=== PATIENT | male | born 1945 | race Caucasian/White ===

== ENCOUNTER 2019-05-24 17:54 | Emergency (ER) | payer MEDICARE, BC ==
[2019-05-24] MEDS ORDERED: Sodium Chloride 0.9% 10 ML Syringe FLUSH PRN (18:07)
[2019-05-24 18:26] LABS: CHLORIDE,CL 98 mmol/L (98-107); SODIUM,NA 130 mmol/L (136-145)
[2019-05-24 18:27] LABS: PTT,PARTIAL THROMBOPLSTIN TIME 26.6 SEC (24.5-32.8)
[2019-05-24] MEDS ORDERED: Sodium Chloride 0.9% 1,000 ML IV ONE (18:28)
[2019-05-24] MEDS ORDERED: Sodium Chloride 0.9% 1,000 ML IV SCH (18:30)
[2019-05-24] MEDS ORDERED: Oseltamivir 30 MG Cap PO ONE (18:52)
[2019-05-24] MEDS ORDERED: Acetaminophen 325 MG Tab PO ONE (19:00)
[2019-05-24] MEDS ORDERED: Oseltamivir 30 MG Cap ONE (19:01)
--- NOTE | 2019-05-24 19:03 | EDM.PDOC ---
ED HPI GENERAL MEDICAL PROBLEM - General Chief Complaint: Neurological Problem Stated Complaint: stroke code Time Seen by Provider: 05/24/19 18:06 Source of Information: Reports: Patient, Family History Limitations: Reports: Altered Mental Status - History of Present Illness INITIAL COMMENTS - FREE TEXT/NARRATIVE: Pt noted by family to be weak and confused Last known well time was about noon Pt found outside by family weak and unable to walk Very confused Upon arrival in ER pt confused and weak Pt with generalized weakness, cannot remember birthday or events Unsure of situation Pt does follow commands No focal neuro changes states he has not taken his meds for 3 days and has had decreased oral intake No new meds No trauma No travel hx ED ROS GENERAL - Review of Systems Review Of Systems: See Below Constitutional: Reports: Fever, Weakness HEENT: Reports: No Symptoms Respiratory: Reports: No Symptoms Cardiovascular: Reports: No Symptoms GI/Abdominal: Reports: No Symptoms Musculoskeletal: Reports: No Symptoms Neurological: Reports: Confusion, Difficulty Walking, Weakness - Physical Exam Exam: See Below Exam Limited By: Altered Mental Status Eye Exam: Bilateral Eye: EOMI, PERRL Ears: Normal TMs Nose: Normal Inspection Throat/Mouth: Normal Inspection, Normal Oropharynx Head Exam: Atraumatic Neck: Supple Respiratory/Chest: Decreased Breath Sounds Cardiovascular: Regular Rate, Rhythm GI/Abdominal: Non-Tender Neuro Exam (Abbreviated): No Motor/Sensory Deficits, Confused Extremities: No Pedal Edema Skin Exam: No Rash Course - Orders/Labs/Meds Orders: Active Orders 24 hr Category Date Time Status Assess Neurological Status [RC] CONTINUOUS Care 05/24/19 18:07 Active Blood Glucose Check, Bedside [RC] STAT Care 05/24/19 18:07 Active Cardiac Monitoring [RC] CONTINUOUS Care 05/24/19 18:07 Active Communication Order [RC] STAT Care 05/24/19 18:07 Active EKG Documentation Completion [RC] ASDIRECTED Care 05/24/19 18:08 Active Height and Weight [RC] UPON Care 05/24/19 18:07 Active NIH Stroke Scale [RC] Q15M Care 05/24/19 18:07 Active NIH Stroke Scale [RC] STAT Care 05/24/19 18:07 Active Nursing Bedside Swallow Screen [RC] STAT Care 05/24/19 18:07 Active Oxygen Therapy, ED [RC] ASDIRECTED Care 05/24/19 18:07 Active Peripheral IV Care [RC] . DIRECTED Care 05/24/19 18:08 Active Vital Signs [RC] Q15M Care 05/24/19 18:07 Active Chest 1V Frontal [CR] Stat Exams 05/24/19 18:25 Taken Head wo Cont [CT] Stat Exams 05/24/19 18:07 Taken LACTIC ACID [CHEM] Stat Lab 05/24/19 18:45 Ordered Sodium Chloride 0.9% [Normal Saline] 1,000 ml Med 05/24/19 18:30 Active IV ASDIRECTED Sodium Chloride 0.9% [Saline Flush] Med 05/24/19 18:07 Active 10 ml FLUSH ASDIRECTED PRN Peripheral IV Insertion Adult [OM.PC] Stat Oth 05/24/19 18:07 Ordered Peripheral IV Insertion Adult [OM.PC] Stat Oth 05/24/19 18:07 Ordered Resuscitation Status Stat Resus Stat 05/24/19 18:07 Ordered Medication Orders Sodium Chloride (Normal Saline) 1,000 mls @ 200 mls/hr IV ASDIRECTED CONRADO Sodium Chloride (Saline Flush) 10 ml FLUSH ASDIRECTED PRN PRN Reason: Keep Vein Open Labs: Laboratory Tests 05/24/19 05/24/19 05/24/19 Range/Units 18:00 18:00 18:00 WBC 12.6 H (4.0-10.2) K/uL RBC 4.56 (4.33-5.41) M/uL Hgb 14.5 (13.1-16.8) g/dL Hct 42.2 (39.0-49.0) % MCV 92.5 (84.0-98.0) fL MCH 31.8 (28.2-33.3) pg MCHC 34.4 (31.7-36.0) g/dL RDW 13.3 (11.2-14.1) % Plt Count 321 (150-350) K/uL Neut % (Auto) 69.0 (45.0-80.0) % Lymph % (Auto) 17.0 (10.0-50.0) % Harper % (Auto) 11.5 (2.0-14.0) % Eos % (Auto) 2.3 (0.0-5.0) % Baso % (Auto) 0.2 (0.0-2.0) % Neut # (Auto) 8.67 H (1.40-7.00) K/uL Lymph # (Auto) 2.14 (0.50-3.50) K/uL Harper # (Auto) 1.44 H (0.00-1.00) K/uL Eos # (Auto) 0.29 (0.00-0.50) K/uL Baso # (Auto) 0.03 (0.00-0.20) K/uL PT 10.1 (9.5-12.0) SEC INR 1.0 APTT 26.6 (24.5-32.8) SEC Sodium 130 L (136-145) mmol/L Potassium 4.7 (3.5-5.1) mmol/L Chloride 98 (98-107) mmol/L Carbon Dioxide 18.5 L (21.0-32.0) mmol/L BUN 45 H (7-18) mg/dL Creatinine 2.73 H (0.51-1.17) mg/dL Est Cr Clr Drug Dosing TNP Estimated GFR (MDRD) 23 mL/min Glucose 109 H (74-106) mg/dL Calcium 9.1 (8.5-10.1) mg/dL Total Bilirubin 0.4 (0.2-1.0) mg/dL AST 46 H (15-37) U/L ALT 45 (12-78) U/L Alkaline Phosphatase 158 H (46-116) IU/L Troponin I 0.014 (0.000-0.056) ng/mL Total Protein 8.0 (6.4-8.2) g/dL Albumin 2.9 L (3.4-5.0) g/dL Meds: Medications Generic Name Dose Route Start Last Admin Trade Name Freq PRN Reason Stop Dose Admin Sodium Chloride 1,000 mls @ 200 mls/hr 05/24/19 18:30 Normal Saline IV ASDIRECTED CONRADO Sodium Chloride 10 ml 05/24/19 18:07 Saline Flush FLUSH ASDIRECTED PRN Keep Vein Open Discontinued Medications Generic Name Dose Route Start Last Admin Trade Name Freq PRN Reason Stop Dose Admin Oseltamivir Phosphate 30 mg 05/24/19 18:52 Tamiflu PO 05/24/19 18:53 ONETIME ONE - Re-Assessments/Exams Free Text/Narrative Re-Assessment/Exam: 05/24/19 19:[address] per radiologist negative See lab Unknown if elevated BUN/Cr is acute INfluenza B positive D/W Dr [facility] Will accept in transfer Pt with NS IVF Pt able to swallow Tamiflu and Tylenol Tamiflu dosed for renal status Departure - Departure Time of Disposition: 19:15 Disposition: DC/Tfer to Acute Hospital 02 Clinical Impression: Confusion and disorientation, Influenza B - Discharge Information *PRESCRIPTION DRUG MONITORING PROGRAM REVIEWED*: Not Applicable *COPY OF PRESCRIPTION DRUG MONITORING REPORT IN PATIENT NUVIA: Not Applicable Referrals: PCP,None [Primary Care Provider] - - My Orders Last 24 Hours: My Active Orders 05/24/19 18:07 Assess Neurological Status [RC] CONTINUOUS Blood Glucose Check, Bedside [RC] STAT Cardiac Monitoring [RC] CONTINUOUS Communication Order [RC] STAT Height and Weight [RC] UPON NIH Stroke Scale [RC] Q15M NIH Stroke Scale [RC] STAT Nursing Bedside Swallow Screen [RC] STAT Oxygen Therapy, ED [RC] ASDIRECTED Vital Signs [RC] Q15M Head wo Cont [CT] Stat Sodium Chloride 0.9% [Saline Flush] 10 ml FLUSH ASDIRECTED PRN Peripheral IV Insertion Adult [OM.PC] Stat Peripheral IV Insertion Adult [OM.PC] Stat Resuscitation Status Stat 05/24/19 18:08 EKG Documentation Completion [RC] ASDIRECTED Peripheral IV Care [RC] . DIRECTED 05/24/19 18:25 Chest 1V Frontal [CR] Stat 05/24/19 18:30 Sodium Chloride 0.9% [Normal Saline] 1,000 ml IV ASDIRECTED 05/24/19 18:45 LACTIC ACID [CHEM] Stat - Assessment/Plan Last 24 Hours: My Active Orders 05/24/19 18:07 Assess Neurological Status [RC] CONTINUOUS Blood Glucose Check, Bedside [RC] STAT Cardiac Monitoring [RC] CONTINUOUS Communication Order [RC] STAT Height and Weight [RC] UPON NIH Stroke Scale [RC] Q15M NIH Stroke Scale [RC] STAT Nursing Bedside Swallow Screen [RC] STAT Oxygen Therapy, ED [RC] ASDIRECTED Vital Signs [RC] Q15M Head wo Cont [CT] Stat Sodium Chloride 0.9% [Saline Flush] 10 ml FLUSH ASDIRECTED PRN Peripheral IV Insertion Adult [OM.PC] Stat Peripheral IV Insertion Adult [OM.PC] Stat Resuscitation Status Stat 05/24/19 18:08 EKG Documentation Completion [RC] ASDIRECTED Peripheral IV Care [RC] . DIRECTED 05/24/19 18:25 Chest 1V Frontal [CR] Stat 05/24/19 18:30 Sodium Chloride 0.9% [Normal Saline] 1,000 ml IV ASDIRECTED 05/24/19 18:45 LACTIC ACID [CHEM] Stat
== END 2019-05-24 19:20 ==
LOC: LL.ED 17:54
DX: R41.0 Disorientation, unspecified (principal); J10.1 Influenza due to other identified influenza virus with other respiratory manifestations
CPT/HCPCS: 36415; 70450; 71045; 80053; 83605; 84484; 85025; 85610; 85730; 87804; 93005; 99284; 99285; A9270; J7030

== ENCOUNTER 2019-05-29 08:22 | Inpatient (IN) | payer MEDICARE, BC ==
--- NOTE | 2019-05-29 08:33 | EDM.PDOC ---
ED HPI GENERAL MEDICAL PROBLEM - General Chief Complaint: General Stated Complaint: fall, weakness Time Seen by Provider: 05/29/19 08:22 Source of Information: Reports: Patient, EMS, Family (), Old Records ([facility] chart/EMR), Other ([facility] EMR). 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 Last known well time prior to bedtime yesterday evening at 22: 30 hours. His heard some noises, and the patient apparently fell out of bed landing against their bedroom door with some confusion at that time. No known history of seizure activity, urine/stool incontinence, etc. Note that the patient is a poor historian secondary to his current mental status and confusion. No apparent alcohol use since 05/18/19. The patient was recently hospitalized at [facility] in [place] from 05/24/19 until 05/27/19 for influenza B with patient currently on Tamiflu. He was not discharged on any antibiotic, although he was sent home on Librium secondary to apparent DTs during the above hospitalization. The patient denies any chest pain/pressure, heart flutter, dizziness, orthostasis, orthopnea, diaphoresis, paresthesias, recent decreased exercise tolerance, or any other anginal-type symptoms. No recent history of abdominal pain, heartburn, nausea, diarrhea, melena, gross hematochezia, or any food intolerance, including fatty foods, etc.. He denies any gross hematuria, colic, or other UTI symptoms. The patient also denies any recent fever, cough, wheezing, dyspnea, etc.. No history of recent headaches, visual changes, diplopia, change in mental status, or other change in neurological status. Onset: Today, Unknown/Unsure Onset Date: 05/29/19 Onset Time: 07:00 Duration: Constant Location: Reports: Other (No pain) Improves with: Reports: None Worsens with: Reports: None Context: Reports: Other (As above) Associated Symptoms: Reports: Confusion. Denies: Chest Pain, Cough, Diaphoresis , Fever/Chills, Headaches, Loss of Appetite, Malaise, Nausea/Vomiting, Shortness of Breath, Syncope, Weakness Treatments TECHNOLOGY LEAD: Reports: Other (see below) (None. He has not taken his morning medications) - Related Data Allergies Allergy/AdvReac Type Severity Reaction Status Date / Time No Known Allergies Allergy Verified 05/29/19 08:32 Home Meds: Home Meds Cyanocobalamin (Vitamin B-12) [Vitamin B-12] 1,000 mcg PO DAILY 05/29/19 [ History] Folic Acid 1 mg PO DAILY 05/29/19 [History] Oseltamivir [Tamiflu] 30 mg PO BID 05/29/19 [History] Polyvinyl Alcohol [Artificial Tears] 1 - 2 drop EYEBOTH ASDIRECTED PRN 05/29/19 [History] Thiamine HCl [Vitamin B-1] 100 mg PO DAILY 05/29/19 [History] Venlafaxine HCl [Venlafaxine ER] 75 mg PO DAILY 05/29/19 [History] allopurinoL [Zyloprim] 100 mg PO DAILY 05/29/19 [History] atorvaSTATin [Lipitor] 10 mg PO DAILY 05/29/19 [History] carvediloL [Carvedilol] 25 mg PO BID 05/29/19 [History] chlordiazePOXIDE [Librium] 10 mg PO TID 05/29/19 [History] predniSONE [Prednisone] 5 mg PO DAILY 05/29/19 [History] Past Medical History HEENT History: Reports: Allergic Rhinitis, Hard of Hearing, Impaired Vision, Macular Degeneration, Other (See Below). Denies: Cataract, Glaucoma, Otitis Media, Retinal Detachment Other HEENT History: Bilateral presbycusis. Patient does wear glasses. 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 Cardiovascular History: Reports: Arrhythmia, High Cholesterol, Hypertension, Other (See Below). Denies: Afib, Aneurysm, Blood Clots/VTE/DVT, CAD, Heart Failure, Heart Murmur, OR, PVD, Syncope Other Cardiovascular History: Grade 1 diastolic dysfunction. First degree AV block. Respiratory History: Reports: Bronchitis, Recurrent, COPD, Intubation, Previous , Other (See Below). Denies: Asthma, Intubation, Difficult, PE, Pneumothorax, Sleep Apnea, TB Other Respiratory History: COPD by chest x-ray with no current medical therapy. 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 Gastrointestinal History: Reports: Diverticulosis, Hepatitis, Other (See Below) . 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 Genitourinary History: Reports: BPH, Chronic Renal Insuffiency, Other (See Below ). Denies: Acute Renal Failure, Renal Calculus, STD, Urinary Incontinence, UTI , Recurrent Other Genitourinary History: Stable right renal complex cyst and bilateral renal cysts by evaluations as below. 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 Stage IV chronic renal insufficiency. Musculoskeletal History: Reports: Arthritis, Back Pain, Chronic, Fracture, Gout , Neck Pain, Chronic, Osteoarthritis, Other (See Below). Denies: Amputation, Osteoporosis, RA, SLE Other Musculoskeletal History: Right coracoid process hairline fracture extending to the scapula on 05/13/18. Neurological History: Reports: Other (See Below). Denies: Cerebral Aneurysms, Concussion, CVA, Headaches, Chronic, Head Trauma, Migraines, MS, Neuropathy, Diabetic, Neuropathy, Peripheral, Parkinson's, Seizure, TIA, Vertigo Other Neuro History: No history of alcohol-induced seizures. Cerebral microvascular disease and cerebral atrophy by CT scan. Psychiatric History: Reports: Addiction, Anxiety, Depression, Psychosis, Other ( See Below). Denies: Abuse, Victim of, ADD, ADHD, Psych Hospitalization(s), PTSD , Suicide Attempt, Suicidal Ideation Other Psychiatric History: History of alcohol abuse with secondary DTs. Endocrine/Metabolic History: Reports: Obesity/BMI 30+. Denies: Diabetes, Type I , Diabetes, Type II, Hypothyroidism, IDDM Hematologic History: Reports: B12 Deficiency. Denies: Anemia, Iron Deficiency Immunologic History: Reports: None. Denies: AIDS, HIV, SLE Oncologic (Cancer) History: Reports: None. Denies: Basal Cell Carcinoma, Colon , Hodgkin's Lymphoma, Leukemia, Lymphoma, Malignant Melanoma, Non-Hodgkin's Lymphoma, Prostate, Squamous Cell Carcinoma Dermatologic History: Reports: Eczema. Denies: Psoriasis - Infectious Disease History Infectious Disease History: Reports: Chicken Pox, Other (See Below). Denies: C- Difficile, Meningitis, Mononucleosis, MRSA, TB Other Infectious Disease History: uncertain of childhood diseases. Sepsis of unknown source. - Past Surgical History Head Surgeries/Procedures: Reports: None HEENT Surgical History: Reports: Oral Surgery, Other (See Below). Denies: Adenoidectomy, Detached Retina, Eye Surgery, Laser Surgery, LASIK, Myringotomy w Tube(s), Naso-Sinus Surgery, Tonsillectomy Other HEENT Surgeries/Procedures: Multiple teeth extractions with complete upper dentures. Cardiovascular Surgical History: Reports: None. Denies: Varicose Respiratory Surgical History: Reports: None. Denies: Thoracentesis GI Surgical History: Reports: None. Denies: Appendectomy, Cholecystectomy, Colonoscopy, EGD, Hernia, Abdominal, Hernia, Inguinal, Hernia Repair/Other Male Surgical History: Reports: Circumcision, Other (See Below). Denies: TURP-Transurethral Resection of Prostate, Vasectomy Other Male Surgeries/Procedures: Circumcision at age 1. Endocrine Surgical History: Reports: None. Denies: Thyroid Biopsy Neurological Surgical History: Reports: None. Denies: C-Spine, Discectomy, Laminectomy, Lumbar Spine, Spinal Fusion, Thoracic Spine, Vertebroplasty Musculoskeletal Surgical History: Reports: Joint Replacement, Shoulder Surgery, Other (See Below). Denies: Arthroscopic Procedure, Carpal Tunnel, Ganglion Cyst Other Musculoskeletal Surgeries/Procedures:: Right shoulder reverse total arthroplasty on 05/13/18. Right total knee arthroplasty on 07/23/15. A left total knee arthroplasty on 08/15/17. Oncologic Surgical History: Reports: None Dermatological Surgical History: Reports: None - Past Imaging History Past Imaging History: Reports: Cardiac Echo (Echocardiogram on 12/01/17 with ejection fraction of 6065 percent otherwise with findings as above.), CAT Scan (CT of the head on 05/24/19 and 03/04/10. CT of the right shoulder on 07/24/18. CT of the abdomen and pelvis on 10/29/08 and 04/15/08.), MRI (Stephanie of the right foot on 12/03/17.) - History Comment History Comment: History from medical records and patient's Social & Family History - Family History HEENT: Reports: None. Denies: Glaucoma, Macular Degeneration, Retinal Detachment Cardiac: Reports: None. Denies: Afib, Aneurysm, Arrhythmia, Blood Clots/VTE/DVT , CAD, Heart Failure, High Cholesterol, Hypertension, OR, Pacemaker, Syncope Respiratory: Reports: None. Denies: Asthma, COPD, PE, Pneumothorax, Sleep Apnea GI: Reports: Colon Polyps, Other (See Below). Denies: Celiac Disease, Cholelithiasis, GERD, GI bleed, Inflammatory Bowel Disease, Irritable Bowel Syndrome, PUD Other GI Family History: Mother with history of colonic polyps in her 60s. : Denies: Renal Calculus, Renal Disease/Insufficiency OBGYN: Reports: None. Denies: Endometriosis, Recurrent Spontaneous Musculoskeletal: Reports: None. Denies: Arthritis, Gout, RA, SLE Neurological: Reports: Alzheimers Disease, CVA, Dementia, Other (See Below). Denies: Cerebral Aneurysms, Migraines, MS, Parkinson's, Seizure, TIA Other Neurological Family History: Mother with organic brain syndrome. Sister with CVA at about age 70. Psychiatric: Reports: Anxiety, Depression, Other (See Below). Denies: Abuse, Victim of, ADD, ADHD, Psych Hospitalization(s), PTSD, Suicide Attempt Other Psychiatric Family History: Mother with anxiety depression disorder. Endocrine/Metabolic: Reports: None. Denies: Diabetes, Type I, Diabetes, type II , Hypothyroidism, IDDM Hematologic: Reports: None. Denies: Anemia, SLE Immunologic: Reports: None. Denies: AIDS, HIV, SLE Dermatologic: Reports: Eczema, Other (See Below). Denies: Psoriasis Other Dermatologic Family History: Sister with eczema. Oncologic: Reports: Hodgkin's Lymphoma, Other (See Below). Denies: Colon, Leukemia, Non-Hodgkin's Lymphoma, Prostate, Skin Other Oncologic Family History: Father with fatal Hodgkin's disease at age 43. - Tobacco Use Smoking Status *Q: Former Smoker Tobacco Use Within Last Twelve Months: Cigarettes Years of Tobacco use: 7 Packs/Tins Daily: 1 Packs/Tins Daily Comment: Patient smoked between ages 17 and 24. Used Tobacco, but Quit: Yes Smoking Cessation Information Provided To Patient: No Second Hand Smoke Education Provided: No - Caffeine Use Caffeine Use: Reports: Coffee (1 Cup per month). Denies: Energy Drinks, Soda, Tea - Alcohol Use Alcohol Use History: Yes Days Per Week of Alcohol Use: 7 Number of Drinks Per Day: 5 Number of Drinks Per Day Comment: Alcohol abuse including 1 L per week of hard liquor and previous beer use since about age 10 with last use on 05/18/19. 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 ( Other than as above) ED EXAM, GENERAL - Physical Exam Exam: See Below Exam Limited By: Altered Mental Status General Appearance: Lethargic, Mild Distress Eye Exam: Bilateral Eye: EOMI, Normal Fundi, Normal Inspection (No nystagmus, glasses not present), PERRL Ears: Normal External Exam, Normal Canal, Normal TMs, Hearing Loss (Mild bilateral presbycusis by history) Nose: Normal Inspection, Normal Mucosa. No: No Blood (Mild left sided epistaxis ), Nasal Tenderness, Nasal Deformity Throat/Mouth: Normal Lips, Normal Oropharynx, Normal Voice, No Airway Compromise. No: Normal Teeth (Complete upper dentures), Dysphagia, Inflammation , Perioral Cyanosis Head: Atraumatic, Normocephalic. No: Facial Swelling, Facial Tenderness, Sinus Tenderness Neck: Supple, Non-Tender, Full Range of Motion, Carotid Bruit (Mild bilateral carotid bruits). No: Lymphadenopathy (L), Lymphadenopathy (R), Thyromegaly Respiratory/Chest: No Respiratory Distress, Chest Non-Tender, Rales (Mild to moderate bilateral basilar rales), Other (Borderline Kussmaul breathing). No: Rhonchi, Wheezing, Pleural Rub, Retractions Cardiovascular: Normal Peripheral Pulses, Regular Rate, Rhythm, No Edema, No Gallop, No JVD, No Murmur, No Rub. No: Gallop/S3, Gallop/S4, Friction Rub Peripheral Pulses: 2+: Radial (L), Radial (R), Dorsalis Pedis (L), Dorsalis Pedis (R) GI/Abdominal: Normal Bowel Sounds, Soft, Non-Tender, No Organomegaly, No Distention, No Abnormal Bruit, No Mass, Pelvis Stable, Hernia (3 cm nonincarcerated umbilical hernia), Other. No: Guarding (Male) Exam: Deferred Rectal (Males) Exam: Deferred Back Exam: Normal Inspection, Full Range of Motion. No: CVA Tenderness (L), CVA Tenderness (R), Muscle Spasm, Paraspinal Tenderness, Vertebral Tenderness Extremities: Normal Inspection, Normal Range of Motion, Non-Tender, No Pedal Edema, Normal Capillary Refill. No: Calvin's Sign Neurological: Confused, Other (Lethargic, leaning to the right side. Negative Babinski's. Unable to perform complete neurological evaluation. Mild to moderate resting tremor with moderate rigidity and cogwheeling) Psychiatric: Normal Affect, Normal Mood Skin Exam: Ecchymosis (Multiple ecchymoses on the arms bilaterally. 34 centimeters small subcutaneous hematoma lateral right thigh.), Wound/Incision ( Skin tears on the dorsal and ventral surfaces of the right wrist with additional skin tear over the left triceps region) Lymphatic: No Adenopathy EKG INTERPRETATION EKG Date: 05/29/19 Time: 08:02 Rhythm: NSR Rate (Beats/Min): 75 Cosby: Normal (Left cardiac axis) P-Wave: Present QRS: Normal (0.08 seconds) ST-T: Normal (Lotion of previous T-wave inversions in leads aVL and possibly V1) QT: Normal AK/PQ Interval: 0.23 seconds representing a stable first-degree AV block Comparison: Change From Previous EKG (As above since 05/24/19) EKG Interpretation Comments: 1. No acute ischemic changes 2. First-degree AV block Course - Vital Signs Last Recorded V/S: Last Vital Signs Temp 37.3 C 05/29/19 08:25 Pulse 70 05/29/19 10:23 Resp 26 H 05/29/19 10:23 BP 120/55 L 05/29/19 10:23 Pulse Ox 95 05/29/19 10:23 Vital Signs - 24 hr 05/29/19 05/29/19 05/29/19 08:25 08:37 08:52 Temperature [ 37.3 C Temporal] Pulse, 86 80 77 Peripheral [ Left Pulse Oximetry] Respiratory 28 H 26 H 26 H Rate Blood Pressure [Left Upper Arm ] Blood Pressure 154/83 H 150/79 H [Right Upper Arm] O2 Sat by Pulse 98 97 95 Oximetry 05/29/19 05/29/19 05/29/19 09:09 09:37 09:52 Temperature [ Temporal] Pulse, 72 70 70 Peripheral [ Left Pulse Oximetry] Respiratory 26 H 26 H 27 H Rate Blood Pressure 121/60 107/60 121/63 [Left Upper Arm ] Blood Pressure [Right Upper Arm] O2 Sat by Pulse 95 95 95 Oximetry 05/29/19 05/29/19 10:08 10:23 Temperature [ Temporal] Pulse, 71 70 Peripheral [ Left Pulse Oximetry] Respiratory 28 H 26 H Rate Blood Pressure 135/63 120/55 L [Left Upper Arm ] Blood Pressure [Right Upper Arm] O2 Sat by Pulse 95 95 Oximetry - Orders/Labs/Meds Orders: Active Orders 24 hr Category Date Time Status Blood Glucose Check, Bedside [RC] STAT Care 05/29/19 08:34 Active Cardiac Monitoring [RC] STAT Care 05/29/19 08:34 Active EKG Documentation Completion [RC] ASDIRECTED Care 05/29/19 08:34 Active Duenas Catheter Insertion [Insert Urinary Catheter] [OM. Care 05/29/19 10:00 Ordered PC] Q24H NIH Stroke Scale [RC] ASDIRECTED Care 05/29/19 08:34 Active Oxygen Therapy, ED [RC] PRN Care 05/29/19 08:34 Active Peripheral IV Care [RC] . DIRECTED Care 05/29/19 08:34 Active Pulse Oximetry [RC] CONTINUOUS Care 05/29/19 08:34 Active Up With Assistance [RC] ASDIRECTED Care 05/29/19 08:34 Active Urinary Catheter Assessment [RC] ASDIRECTED Care 05/29/19 09:47 Ordered Vital Signs [RC] PFP Care 05/29/19 08:34 Active Nothing per Oral Now Diet [DIET] Diet 05/29/19 Breakfast Active Chest 1V Frontal [CR] Stat Exams 05/29/19 08:34 Taken Head wo Cont [CT] Stat Exams 05/29/19 08:34 Taken CULTURE BLOOD [BC] Stat Lab 05/29/19 08:53 Received CULTURE BLOOD [BC] Stat Lab 05/29/19 09:20 Received CULTURE URINE [RM] Routine Lab 05/29/19 09:48 Ordered LACTATE SEPSIS W/ REFLEX [CHEM] Stat Lab 05/29/19 08:36 Ordered PROLACTIN [REF] Stat Lab 05/29/19 08:53 Received Sodium Chloride 0.9% [Saline Flush] Med 05/29/19 08:34 Active 10 ml FLUSH ASDIRECTED PRN Blood Culture x2 Reflex Set [OM.PC] Urgent Oth 05/29/19 08:36 Ordered Obtain Past Medical Record [OM.PC] Stat Oth 05/29/19 08:34 Active Peripheral IV Insertion Adult [OM.PC] Stat Oth 05/29/19 08:34 Ordered Resuscitation Status Stat Resus Stat 05/29/19 08:34 Ordered Medication Orders Sodium Chloride (Saline Flush) 10 ml FLUSH ASDIRECTED PRN PRN Reason: Keep Vein Open Last Admin: 05/29/19 09:05 Dose: 10 ml Labs: Laboratory Tests 05/29/19 05/29/19 05/29/19 Range/Units 08:35 08:53 08:53 WBC 13.5 H (4.0-10.2) K/uL RBC 3.87 L (4.33-5.41) M/uL Hgb 12.2 L D (13.1-16.8) g/dL Hct 36.6 L (39.0-49.0) % MCV 94.6 (84.0-98.0) fL MCH 31.5 (28.2-33.3) pg MCHC 33.3 (31.7-36.0) g/dL RDW 13.0 (11.2-14.1) % Plt Count 289 (150-350) K/uL Neut % (Auto) 87.2 H (45.0-80.0) % Lymph % (Auto) 8.7 L (10.0-50.0) % Sac % (Auto) 3.3 (2.0-14.0) % Eos % (Auto) 0.6 (0.0-5.0) % Baso % (Auto) 0.2 (0.0-2.0) % Neut # (Auto) 11.78 H (1.40-7.00) K/uL Lymph # (Auto) 1.18 (0.50-3.50) K/uL Sac # (Auto) 0.44 (0.00-1.00) K/uL Eos # (Auto) 0.08 (0.00-0.50) K/uL Baso # (Auto) 0.03 (0.00-0.20) K/uL PT 11.2 (9.5-12.0) SEC INR 1.1 APTT 23.5 L (24.5-32.8) SEC D-Dimer, Quantitative (0-400) ng/mL Sodium (136-145) mmol/L Potassium (3.5-5.1) mmol/L Chloride (98-107) mmol/L Carbon Dioxide (21.0-32.0) mmol/L BUN (7-18) mg/dL Creatinine (0.51-1.17) mg/dL Est Cr Clr Drug Dosing Estimated GFR (MDRD) mL/min Glucose (74-106) mg/dL POC Glucose 95 (65-110) mg/dl Lactic Acid (0.4-2.0) mmol/L Uric Acid (2.6-7.2) mg/dL Calcium (8.5-10.1) mg/dL Magnesium (1.8-2.4) mg/dL Total Bilirubin (0.2-1.0) mg/dL AST (15-37) U/L ALT (12-78) U/L Alkaline Phosphatase (46-116) IU/L Creatine Kinase (26-308) U/L Creatine Kinase Index (0.0-2.5) % CK-MB (CK-2) (0.00-3.60) ng/mL Troponin I (0.000-0.056) ng/mL NT-Pro-B Natriuret Pep (0-125) pg/mL Total Protein (6.4-8.2) g/dL Albumin (3.4-5.0) g/dL TSH, Ultra Sensitive (0.358-3.740) mIU/mL Specimen Type Urine Color Urine Appearance Urine pH (5.0-9.0) Ur Specific Lutz (1.005-1.030) Urine Protein (NEGATIVE) mg/dL Urine Glucose (UA) (NEGATIVE) mg/dL Urine Ketones (NEGATIVE) mg/dL Urine Occult Blood (NEGATIVE) Urine Nitrite (NEGATIVE) Urine Bilirubin (NEGATIVE) Urine Urobilinogen (0.2-1.0) E.U./dL Ur Leukocyte Esterase (NEGATIVE) Urine RBC /HPF Urine WBC /HPF Urine Bacteria (NONE TO FEW) /HPF Ethyl Alcohol (0.000-0.080) g/dL 05/29/19 05/29/19 05/29/19 Range/Units 08:53 08:53 08:53 WBC (4.0-10.2) K/uL RBC (4.33-5.41) M/uL Hgb (13.1-16.8) g/dL Hct (39.0-49.0) % MCV (84.0-98.0) fL MCH (28.2-33.3) pg MCHC (31.7-36.0) g/dL RDW (11.2-14.1) % Plt Count (150-350) K/uL Neut % (Auto) (45.0-80.0) % Lymph % (Auto) (10.0-50.0) % Sac % (Auto) (2.0-14.0) % Eos % (Auto) (0.0-5.0) % Baso % (Auto) (0.0-2.0) % Neut # (Auto) (1.40-7.00) K/uL Lymph # (Auto) (0.50-3.50) K/uL Sac # (Auto) (0.00-1.00) K/uL Eos # (Auto) (0.00-0.50) K/uL Baso # (Auto) (0.00-0.20) K/uL PT (9.5-12.0) SEC INR APTT (24.5-32.8) SEC D-Dimer, Quantitative 4900 H (0-400) ng/mL Sodium 134 L (136-145) mmol/L Potassium 4.7 (3.5-5.1) mmol/L Chloride 102 (98-107) mmol/L Carbon Dioxide 19.5 L (21.0-32.0) mmol/L BUN 28 H (7-18) mg/dL Creatinine 2.42 H (0.51-1.17) mg/dL Est Cr Clr Drug Dosing TNP Estimated GFR (MDRD) 26 mL/min Glucose 98 (74-106) mg/dL POC Glucose (65-110) mg/dl Lactic Acid 2.4 H (0.4-2.0) mmol/L Uric Acid 7.2 (2.6-7.2) mg/dL Calcium 8.8 (8.5-10.1) mg/dL Magnesium 1.0 L (1.8-2.4) mg/dL Total Bilirubin 0.7 (0.2-1.0) mg/dL AST 92 H (15-37) U/L ALT 57 (12-78) U/L Alkaline Phosphatase 149 H (46-116) IU/L Creatine Kinase 936 H (26-308) U/L Creatine Kinase Index 0.3 (0.0-2.5) % CK-MB (CK-2) 2.40 (0.00-3.60) ng/mL Troponin I 1.542 H* (0.000-0.056) ng/mL NT-Pro-B Natriuret Pep 8975 H (0-125) pg/mL Total Protein 7.2 (6.4-8.2) g/dL Albumin 2.5 L (3.4-5.0) g/dL TSH, Ultra Sensitive 0.626 (0.358-3.740) mIU/mL Specimen Type Urine Color Urine Appearance Urine pH (5.0-9.0) Ur Specific Lutz (1.005-1.030) Urine Protein (NEGATIVE) mg/dL Urine Glucose (UA) (NEGATIVE) mg/dL Urine Ketones (NEGATIVE) mg/dL Urine Occult Blood (NEGATIVE) Urine Nitrite (NEGATIVE) Urine Bilirubin (NEGATIVE) Urine Urobilinogen (0.2-1.0) E.U./dL Ur Leukocyte Esterase (NEGATIVE) Urine RBC /HPF Urine WBC /HPF Urine Bacteria (NONE TO FEW) /HPF Ethyl Alcohol (0.000-0.080) g/dL 05/29/19 05/29/19 Range/Units 08:53 10:10 WBC (4.0-10.2) K/uL RBC (4.33-5.41) M/uL Hgb (13.1-16.8) g/dL Hct (39.0-49.0) % MCV (84.0-98.0) fL MCH (28.2-33.3) pg MCHC (31.7-36.0) g/dL RDW (11.2-14.1) % Plt Count (150-350) K/uL Neut % (Auto) (45.0-80.0) % Lymph % (Auto) (10.0-50.0) % Sac % (Auto) (2.0-14.0) % Eos % (Auto) (0.0-5.0) % Baso % (Auto) (0.0-2.0) % Neut # (Auto) (1.40-7.00) K/uL Lymph # (Auto) (0.50-3.50) K/uL Sac # (Auto) (0.00-1.00) K/uL Eos # (Auto) (0.00-0.50) K/uL Baso # (Auto) (0.00-0.20) K/uL PT (9.5-12.0) SEC INR APTT (24.5-32.8) SEC D-Dimer, Quantitative (0-400) ng/mL Sodium (136-145) mmol/L Potassium (3.5-5.1) mmol/L Chloride (98-107) mmol/L Carbon Dioxide (21.0-32.0) mmol/L BUN (7-18) mg/dL Creatinine (0.51-1.17) mg/dL Est Cr Clr Drug Dosing Estimated GFR (MDRD) mL/min Glucose (74-106) mg/dL POC Glucose (65-110) mg/dl Lactic Acid (0.4-2.0) mmol/L Uric Acid (2.6-7.2) mg/dL Calcium (8.5-10.1) mg/dL Magnesium (1.8-2.4) mg/dL Total Bilirubin (0.2-1.0) mg/dL AST (15-37) U/L ALT (12-78) U/L Alkaline Phosphatase (46-116) IU/L Creatine Kinase (26-308) U/L Creatine Kinase Index (0.0-2.5) % CK-MB (CK-2) (0.00-3.60) ng/mL Troponin I (0.000-0.056) ng/mL NT-Pro-B Natriuret Pep (0-125) pg/mL Total Protein (6.4-8.2) g/dL Albumin (3.4-5.0) g/dL TSH, Ultra Sensitive (0.358-3.740) mIU/mL Specimen Type Urincath Urine Color Yellow Urine Appearance Clear Urine pH 6.0 (5.0-9.0) Ur Specific Lutz 1.020 (1.005-1.030) Urine Protein >=300 H (NEGATIVE) mg/dL Urine Glucose (UA) Negative (NEGATIVE) mg/dL Urine Ketones Negative (NEGATIVE) mg/dL Urine Occult Blood Small H (NEGATIVE) Urine Nitrite Negative (NEGATIVE) Urine Bilirubin Negative (NEGATIVE) Urine Urobilinogen 0.2 (0.2-1.0) E.U./dL Ur Leukocyte Esterase Negative (NEGATIVE) Urine RBC 0-5 /HPF Urine WBC 0-5 /HPF Urine Bacteria Few (NONE TO FEW) /HPF Ethyl Alcohol 0.000 (0.000-0.080) g/dL Blood cultures 2 were collected Stat Accu-Chek on arrival 95 mg percent Meds: Medications Generic Name Dose Route Start Last Admin Trade Name Freq PRN Reason Stop Dose Admin Sodium Chloride 10 ml 05/29/19 08:34 05/29/19 09:56 Saline Flush FLUSH 10 ml ASDIRECTED PRN Administration Keep Vein Open Discontinued Medications Generic Name Dose Route Start Last Admin Trade Name Freq PRN Reason Stop Dose Admin Famotidine 40 mg 05/29/19 08:34 05/29/19 09:05 Pepcid IVPUSH 05/29/19 08:35 40 mg ONETIME ONE Administration Famotidine Confirm 05/29/19 09:04 05/29/19 09:11 Pepcid Administered 05/29/19 09:05 Not Given Dose 40 mg .ROUTE .STK-MED ONE Furosemide 60 mg 05/29/19 09:42 05/29/19 09:55 Lasix IVPUSH 05/29/19 09:43 60 mg NOW ONE Administration Ceftriaxone Sodium 1 gm/ 100 mls @ 200 mls/hr 05/29/19 09:42 Sodium Chloride IV 05/29/19 10:11 ONETIME ONE - Radiology Interpretation Free Text/Narrative:: Tractor Operator Laser Leveling shows normal sinus rhythm in the 70s with no ectopy or arrhythmia. Chest x-ray, portable, shows moderate to severe cardiomegaly with moderate prominence of the proximal aortic arch with mild to moderate CHF. Moderate COPD changes with no pulmonary infiltrates, pneumothorax, etc.. Note status post medial sternotomy and right shoulder total arthroplasty. Telephone consultation at 09:21 hours this morning from the radiology department at [facility]. Preliminary verbal report of noncontrast CT scan of the head is stable from previous evaluation from 05/24/19 with no acute ischemic changes, hemorrhages, etc. with stable sinusitis, cerebral atrophy, and cerebral microvascular disease. CT Results Date: 05/29/19 CT Results Time: 09:21 Departure - Departure Time of Disposition: 10:42 Disposition: Admitted As Inpatient 64 Condition: Fair Clinical Impression: CHF, Congestive heart failure, CVA, Cerebrovascular accident, COPD (chronic obstructive pulmonary disease), Influenza B, Mixed anxiety depressive disorder, Parkinsons disease, Hypomagnesemia, Lactic acid increased, Pneumonia, Gout, Need for comfort care, Renal insufficiency, Elevated d-dimer - Discharge Information *PRESCRIPTION DRUG MONITORING PROGRAM REVIEWED*: Not Applicable *COPY OF PRESCRIPTION DRUG MONITORING REPORT IN PATIENT NUVIA: Not Applicable Sepsis Event Note - Focused Exam Vital Signs: Vital Signs Temp Pulse Resp BP BP Pulse Ox 05/29/19 10:23 70 26 H 120/55 L 95 05/29/19 10:08 71 28 H 135/63 95 05/29/19 09:52 70 27 H 121/63 95 05/29/19 09:37 70 26 H 107/60 95 05/29/19 09:09 72 26 H 121/60 95 05/29/19 08:52 77 26 H 95 05/29/19 08:37 80 26 H 150/79 H 97 05/29/19 08:25 37.3 C 86 28 H 154/83 H 98 Date Exam was Performed: 05/29/19 Time Exam was Performed: 11:00 - Problem List & Annotations (1) CHF, Congestive heart failure SNOMED Code(s): 70658189 Code(s): I50.9 - HEART FAILURE, UNSPECIFIED Status: Acute Priority: High Current Visit: Yes Onset Date: 05/29/19 Annotation/Comment:: No known previous coronary artery disease or CHF, although history of diastolic dysfunction by previous echocardiogram. Note elevated troponin I consistent with possible beginning OR and/or secondary to his renal insufficiency and CHF. CK elevated however normal CK index. Various therapeutic options were discussed with the patient's , who is requesting the patient remained in this facility. Note comfort care as below. Audiology consultation depending on his clinical course. No repeat echocardiogram secondary to his comfort care status. Initiate standard rule out OR orders. Subcutaneous Lovenox at the VTE/cardiac dose on admission. Patient is unable to take ASA or Brilinta secondary to his probable CVA and possible dysphagia (2) CVA, Cerebrovascular accident SNOMED Code(s): 716617511 Code(s): I63.9 - CEREBRAL INFARCTION, UNSPECIFIED Status: Acute Priority : High Current Visit: Yes Onset Date: ~05/29/19 Annotation/Comment:: Uncertain last known well time based on above history. Stroke code was not called secondary to patient's comfort care status, however stroke code protocol was followed. The patient's does not wish to transfer the patient to [place] for an MRI. Subcutaneous Lovenox to be initiated on admission as above. (3) COPD (chronic obstructive pulmonary disease) SNOMED Code(s): 86268154 Code(s): J44.9 - CHRONIC OBSTRUCTIVE PULMONARY DISEASE, UNSPECIFIED Status : Chronic Priority: Medium Current Visit: Yes Annotation/Comment:: COPD by previous x-rays with no current medical therapy. Initiate nebulizer treatments on admission. Note influenza B infection with initiation of IV Rocephin in the emergency room secondary to possible concomitant pneumonia, leukocytosis, and current fever. Attempt to obtain sputum specimen. Blood cultures 2 were collected and note mild lactic acid elevation with lactic acid level to be repeated in about 4 hours as per sepsis protocol, however no direct clinical evidence of sepsis. Qualifiers: COPD type: COPD with acute lower respiratory infection Qualified Code(s): J44.0 - Chronic obstructive pulmonary disease with (acute) lower respiratory infection (4) Hypomagnesemia SNOMED Code(s): 911634831 Code(s): E83.42 - HYPOMAGNESEMIA Status: Acute Priority: High Current Visit: Yes Onset Date: 05/29/19 Annotation/Comment:: IV magnesium sulfate shortly after admission. (5) Influenza B SNOMED Code(s): 47236009 Code(s): J10.1 - FLU DUE TO OTH IDENT INFLUENZA VIRUS W OTH RESP MANIFEST Status: Acute Priority: High Current Visit: Yes Onset Date: ~05/24/19 Annotation/Comment:: Tamiflu was scheduled to be completed today, however it will be discontinued at this time secondary to his neurological status. (6) Lactic acid increased SNOMED Code(s): 27811705 Code(s): E87.2 - ACIDOSIS Status: Acute Priority: High Current Visit: Yes Onset Date: 05/29/19 Annotation/Comment:: As above (7) Mixed anxiety depressive disorder SNOMED Code(s): 019305622 Code(s): F41.8 - OTHER SPECIFIED ANXIETY DISORDERS Status: Chronic Priority: Medium Current Visit: Yes Annotation/Comment:: Stable by his history with no DTs after discharge from [facility] on 05/26. (8) Parkinsons disease SNOMED Code(s): 23274097 Code(s): G20 - PARKINSON'S DISEASE Status: Acute Priority: Medium Current Visit: Yes Onset Date: 05/29/19 Annotation/Comment:: Newly diagnosed. Observe for now. Medical therapy depending on his clinical course. (9) Gout SNOMED Code(s): 81015783 Code(s): M10.9 - GOUT, UNSPECIFIED Status: Chronic Priority: Medium Current Visit: Yes Annotation/Comment:: No current gout attack. Osteoarthritis otherwise stable. Qualifiers: Gout site: unspecified site Gout etiology: unspecified cause Chronicity: chronic Presence of tophus: without tophus Qualified Code(s): M1A.9XX0 - Chronic gout, unspecified, without tophus (tophi) (10) Need for comfort care SNOMED Code(s): 094943712, 320564033 Code(s): AHF4621 - Status: Acute Priority: High Current Visit: Yes Annotation/Comment:: Confirmed as above. (11) Pneumonia SNOMED Code(s): 483478495 Code(s): J18.9 - PNEUMONIA, UNSPECIFIED ORGANISM Status: Acute Priority: High Current Visit: Yes Onset Date: ~05/29/19 Annotation/Comment:: As above Qualifiers: Pneumonia type: due to unspecified organism (12) Renal insufficiency SNOMED Code(s): 545454186, 021509070 Code(s): N28.9 - DISORDER OF KIDNEY AND URETER, UNSPECIFIED Status: Chronic Priority: High Current Visit: Yes Annotation/Comment:: Continue to observe closely secondary to IV Lasix therapy. (13) Elevated d-dimer SNOMED Code(s): 480799116 Code(s): R79.89 - OTHER SPECIFIED ABNORMAL FINDINGS OF BLOOD CHEMISTRY Status: Acute Priority: High Current Visit: Yes Onset Date: 05/29/19 Annotation/Comment:: No clinical evidence of DVT or PE. Secondary to renal function he is not a candidate for CTA of the chest. Venous Doppler studies after admission. Note subcutaneous Lovenox as above. - Problem List Review Problem List Initiated/Reviewed/Updated: Yes - My Orders Last 24 Hours: My Active Orders 05/29/19 08:34 Blood Glucose Check, Bedside [RC] STAT Cardiac Monitoring [RC] STAT EKG Documentation Completion [RC] ASDIRECTED NIH Stroke Scale [RC] ASDIRECTED Oxygen Therapy, ED [RC] PRN Peripheral IV Care [RC] . DIRECTED Pulse Oximetry [RC] CONTINUOUS Up With Assistance [RC] ASDIRECTED Vital Signs [RC] PFP Chest 1V Frontal [CR] Stat Head wo Cont [CT] Stat Sodium Chloride 0.9% [Saline Flush] 10 ml FLUSH ASDIRECTED PRN Obtain Past Medical Record [OM.PC] Stat Peripheral IV Insertion Adult [OM.PC] Stat Resuscitation Status Stat 05/29/19 08:36 LACTATE SEPSIS W/ REFLEX [CHEM] Stat Blood Culture x2 Reflex Set [OM.PC] Urgent 05/29/19 08:53 CULTURE BLOOD [BC] Stat PROLACTIN [REF] Stat 05/29/19 09:20 CULTURE BLOOD [BC] Stat 05/29/19 09:47 Urinary Catheter Assessment [RC] ASDIRECTED 05/29/19 09:48 CULTURE URINE [RM] Routine 05/29/19 10:00 Duenas Catheter Insertion [Insert Urinary Catheter] [OM.PC] Q24H 05/29/19 Breakfast Nothing per Oral Now Diet [DIET] - Assessment/Plan Admission H&P: Please use this note as an admission H&P Last 24 Hours: My Active Orders 05/29/19 08:34 Blood Glucose Check, Bedside [RC] STAT Cardiac Monitoring [RC] STAT EKG Documentation Completion [RC] ASDIRECTED NIH Stroke Scale [RC] ASDIRECTED Oxygen Therapy, ED [RC] PRN Peripheral IV Care [RC] . DIRECTED Pulse Oximetry [RC] CONTINUOUS Up With Assistance [RC] ASDIRECTED Vital Signs [RC] PFP Chest 1V Frontal [CR] Stat Head wo Cont [CT] Stat Sodium Chloride 0.9% [Saline Flush] 10 ml FLUSH ASDIRECTED PRN Obtain Past Medical Record [OM.PC] Stat Peripheral IV Insertion Adult [OM.PC] Stat Resuscitation Status Stat 05/29/19 08:36 LACTATE SEPSIS W/ REFLEX [CHEM] Stat Blood Culture x2 Reflex Set [OM.PC] Urgent 05/29/19 08:53 CULTURE BLOOD [BC] Stat PROLACTIN [REF] Stat 05/29/19 09:20 CULTURE BLOOD [BC] Stat 05/29/19 09:47 Urinary Catheter Assessment [RC] ASDIRECTED 05/29/19 09:48 CULTURE URINE [RM] Routine 05/29/19 10:00 Duenas Catheter Insertion [Insert Urinary Catheter] [OM.PC] Q24H 05/29/19 Breakfast Nothing per Oral Now Diet [DIET] Assessment:: As above Plan: As above. Extensive precautions were given to the patient's , who is in agreement with the treatment plan. The patient will require about 3-4 days of inpatient/acute care secondary to multiple health problems as above. Noreen triana physician assumes care in the a.m.
[2019-05-29] MEDS ORDERED: Famotidine 20 MG/2 ML SDV IVPUSH ONE (08:34)
[2019-05-29] MEDS ORDERED: Famotidine 20 MG/2 ML SDV ONE (09:04)
[2019-05-29] MEDS: Sodium Chloride 0.9% 10 ML Syringe FLUSH PRN ×4 (09:05→15:00)
[2019-05-29 09:23] LABS: PTT,PARTIAL THROMBOPLSTIN TIME 23.5 SEC (24.5-32.8)
[2019-05-29 09:24] LABS: CHLORIDE,CL 102 mmol/L (98-107); SODIUM,NA 134 mmol/L (136-145)
[2019-05-29] MEDS ORDERED: Furosemide 40 MG/4 ML VIAL IVPUSH ONE (09:42)
[2019-05-29] MEDS ORDERED: cefTRIAXone 1 GM in Sodium Chloride 0.9% 100 ML IV ONE (09:42)
[2019-05-29] MEDS ORDERED: Magnesium Sulfate/Water 4 GM in Premix Bag 1 BAG IV ONE (11:42)
[2019-05-29] MEDS ORDERED: Enoxaparin 80 MG/0.8 ML Syringe SUBCUT SCH (12:00)
[2019-05-29] MEDS ORDERED: cefTRIAXone 1 GM Vial ONE (12:17)
[2019-05-29] MEDS: Metoprolol Tartrate 5 MG/5 ML SDV IVPUSH SCH ×2 (12:20→17:41)
[2019-05-29 13:13] LABS: HEMOGLOBIN A1C 5.5 % (4.3-5.7)
[2019-05-29] MEDS ORDERED: Albuterol 0.083% 2.5 MG/3 ML Neb Soln INH PRN (14:00)
[2019-05-29] MEDS ORDERED: Levofloxacin/Dextrose 5%-Water 500 MG in Premix Bag 1 BAG IV SCH (14:00)
[2019-05-29] MEDS ORDERED: Albuterol/Ipratropium 3.0-0.5 MG/3 ML Neb Soln NEB PRN (14:11)
[2019-05-29] MEDS ORDERED: methylPREDNISolone Sodium Succinate 125 MG/2 ML SDV IVPUSH SCH (14:15)
[2019-05-29] MEDS ORDERED: Saliva Substitute Oral Spray 120 ML Bottle MUCMEM PRN (17:24)
[2019-05-29] MEDS ORDERED: Potassium Chloride 20 MEQ Tab.ER PO SCH (18:00)
[2019-05-29] MEDS ORDERED: Furosemide 40 MG/4 ML VIAL IVPUSH SCH (19:00)
[2019-05-29] MEDS ORDERED: Albuterol/Ipratropium 3.0-0.5 MG/3 ML Neb Soln NEB SCH (20:00)
--- NOTE | 2019-05-29 20:10 | PCM.DCSUM1 ---
Discharge Summary - Hospital Course HPI Initial Comments: See emergency room note/admission H&P Brief History: See emergency room note/admission H&P Diagnosis: Stroke: Yes Modified [place] Scale: Sev.Disablility Bedridden,Incont.&Require Constant Nrsg.Care/Attention Modified [place] Scale Score: 5 - Discharge Data Discharge Date: 05/29/19 Discharge Disposition: DC/Tfer to Acute Hospital 02 Condition: Good - Referral to Home Health Primary Care Physician: TETE Martinez - Discharge Diagnosis/Problem(s) (1) CHF, Congestive heart failure SNOMED Code(s): 35951933 ICD Code: I50.9 - HEART FAILURE, UNSPECIFIED Status: Acute Priority: High Current Visit: Yes Onset Date: 05/29/19 Problem Details: No known previous coronary artery disease or CHF, although history of diastolic dysfunction by previous echocardiogram. Note elevated troponin I consistent with possible beginning LA and/or secondary to his renal insufficiency and CHF, however progressive troponin I elevations consistent with an acute LA. CK elevated however normal CK index on admission with additional progression of his CK elevation with possibility of rhabdomyolysis. Note IV Lasix therapy on admission, however this was reduced secondary to patient's poor renal function, possible rhabdomyolysis, and hypotension. Note relatively poor renal output despite IV Lasix therapy as above with only 300 mL throughout the day. Various therapeutic options were discussed in the emergency room with the patient's , who initially requested that the patient remain in this facility. Note comfort care as below. Subsequent consultation with the patient's later this afternoon, and she still desired comfort care only, including no vasopressors, etc.. Subsequent third set of blood work this evening indicates anaerobic gram-positive cocci in chains with final organism identity and sensitivity pending and progression of his cardiac enzymes as above. The then discussed the patient's condition with her son by telephone, who is now requesting that the patient be changed to a full code with his also in agreement with this change. Immediate telephone consultation with Dr. Kaminski, emergency room physician at [facility], who does agree to coordinate the acceptance of the patient into their facility through their camera engineer and/or hospitalist. Note the patient has already received IV Rocephin and IV Levaquin therapy. Options were discussed with Dr. Kaminski, who is in agreement with initiating IV vasopressor therapy with IV norepinephrine initiated with further titration by the paramedics in route. Ambulance transfer with primary school principal accompaniment. Probable cardiology and infectious disease consultation by accepting providers. No repeat echocardiogram initially requested by the family secondary to his initial comfort care status. They are aware of his overall extreme poor prognosis. Subcutaneous Lovenox at the VTE/ cardiac dose was initiated on admission. Note new moderate left knee pain with no evidence of bleeding in the knee, although some swelling and ecchymosis in the area. X-ray results as below. Patient is unable to take any oral medications during this hospitalizatio, including in the ER, with ASA or Brilinta not given secondary to his probable CVA and possible dysphagia as below. Subsequent telephone consultation at 20:[address] Gold, camera engineer at [facility], further updating him concerning patient's clinical course, care, etc., with no further treatment recommendations given. (2) Sepsis associated hypotension SNOMED Code(s): 70752479 ICD Code: A41.9 - SEPSIS, UNSPECIFIED ORGANISM; I95.9 - HYPOTENSION, UNSPECIFIED Status: Acute Priority: High Current Visit: Yes Onset Date: 05/29/19 Problem Details: As above, including initiation of vasopressors, etc.. Note negative UA with urine culture and sensitivity still pending. Prognosis extremely poor. (3) CVA, Cerebrovascular accident SNOMED Code(s): 644368151 ICD Code: I63.9 - CEREBRAL INFARCTION, UNSPECIFIED Status: Acute Priority : High Current Visit: Yes Onset Date: ~05/29/19 Problem Details: Uncertain last known well time based on history in the emergency room note. Stroke code was not called secondary to patient's comfort care status, however stroke code protocol was followed. The patient's does not wish to transfer the patient to [place] for an MRI. Subcutaneous Lovenox was initiated on admission as above. Consider MRI of the brain by accepting providers. (4) COPD (chronic obstructive pulmonary disease) SNOMED Code(s): 43195818 ICD Code: J44.9 - CHRONIC OBSTRUCTIVE PULMONARY DISEASE, UNSPECIFIED Status : Chronic Priority: Medium Current Visit: Yes Problem Details: COPD by previous x-rays with no current medical therapy. Initiated nebulizer treatments on admission. Note recent hospitalization for influenza B infection [facility] in [place] with initiation of IV Rocephin in the emergency room secondary to possible concomitant pneumonia, leukocytosis, and current fever, although his fever did significantly improve during this hospitalization. Attempted to obtain sputum specimen, however this was unsuccessful to this point. Blood cultures 2 were collected with positive results as above. Serial lactic acid elevations initially were stable with mild progression at 19:00 hours. Qualifiers: COPD type: COPD with acute lower respiratory infection Qualified Code(s): J44.0 - Chronic obstructive pulmonary disease with (acute) lower respiratory infection (5) Hypomagnesemia SNOMED Code(s): 952757956 ICD Code: E83.42 - HYPOMAGNESEMIA Status: Acute Priority: High Current Visit: Yes Onset Date: 05/29/19 Problem Details: Severe hypomagnesemia in the emergency room with 4 gm IV magnesium sulfate shortly after admission. (6) Influenza B SNOMED Code(s): 08399566 ICD Code: J10.1 - FLU DUE TO OTH IDENT INFLUENZA VIRUS W OTH RESP MANIFEST Status: Acute Priority: High Current Visit: Yes Onset Date: ~05/24/19 Problem Details: Tamiflu was scheduled to be completed today, however it will be discontinued at this time secondary to his neurological status. No known or direct history of seizure from this medication with no urine or stool incontinence based on history from the paramedics. (7) Lactic acid increased SNOMED Code(s): 09069629 ICD Code: E87.2 - ACIDOSIS Status: Acute Priority: High Current Visit: Yes Onset Date: 05/29/19 Problem Details: As above (8) Mixed anxiety depressive disorder SNOMED Code(s): 346743018 ICD Code: F41.8 - OTHER SPECIFIED ANXIETY DISORDERS Status: Chronic Priority: Medium Current Visit: Yes Problem Details: Stable by his history with no DTs after discharge from [facility] on 05/26. (9) Parkinsons disease SNOMED Code(s): 04994406 ICD Code: G20 - PARKINSON'S DISEASE Status: Acute Priority: Medium Current Visit: Yes Onset Date: 05/29/19 Problem Details: Newly diagnosed. Observe for now. Medical therapy depending on his clinical course. (10) Gout SNOMED Code(s): 17346805 ICD Code: M10.9 - GOUT, UNSPECIFIED Status: Chronic Priority: Medium Current Visit: Yes Problem Details: No current gout attack. Osteoarthritis otherwise stable. No initial signs of injury or complaints, however note sedated initial neurological status, which did improve during the course of this hospitalization as above. Patient now complains of moderate left knee pain with follow-up x-ray showing no evidence of acute fracture, TKA loosening, etc. as below. Qualifiers: Gout site: unspecified site Gout etiology: unspecified cause Chronicity: chronic Presence of tophus: without tophus Qualified Code(s): M1A.9XX0 - Chronic gout, unspecified, without tophus (tophi) (11) Need for comfort care SNOMED Code(s): 635783414, 461374826 ICD Code: EXA9779 - Status: Acute Priority: High Current Visit: Yes Problem Details: Confirmed on multiple occasions during this brief hospitalization, however the patient's family did change their mind shortly prior to transfer as above. (12) Pneumonia SNOMED Code(s): 556393486 ICD Code: J18.9 - PNEUMONIA, UNSPECIFIED ORGANISM Status: Acute Priority : High Current Visit: Yes Onset Date: ~05/29/19 Problem Details: As above. Consider additional IV vancomycin therapy, etc. by accepting providers. Qualifiers: Pneumonia type: due to unspecified organism (13) Renal insufficiency SNOMED Code(s): 772085795, 322835154 ICD Code: N28.9 - DISORDER OF KIDNEY AND URETER, UNSPECIFIED Status: Chronic Priority: High Current Visit: Yes Problem Details: Continue to observe closely secondary to IV Lasix therapy and poor urine output during this hospitalization. IV norepinephrine initiated as above. (14) Elevated d-dimer SNOMED Code(s): 744722243 ICD Code: R79.89 - OTHER SPECIFIED ABNORMAL FINDINGS OF BLOOD CHEMISTRY Status: Acute Priority: High Current Visit: Yes Onset Date: 05/29/19 Problem Details: No clinical evidence of DVT or PE. Secondary to renal function he is not a candidate for CTA of the chest. Venous Doppler studies of the lower extremities shortly after admission do not show any evidence of DVTs based on verbal report from our cath lab radiological technologist with final report pending. Note subcutaneous Lovenox as above. - Patient Summary/Data Operative Procedure(s) Performed: None Complications: Sepsis with secondary hypotension Consults: Consultation with emergency room physician and camera engineer at [facility] as above Labs Pending at D/C: 1. Final blood culture and sensitivity results 2. Final urine culture and sensitivity results 3. Final x-ray report of the left knee Recommended Follow-up Testing/Procedures: Transfer to [place] as above Planned Operative Procedure(s) after DC: Per accepting providers Hospital Course: Patient was admitted to inpatient/acute care on telemetry with aggressive treatment for multiple health problems as above. Note some improvement of his neurological status, however the patient is still lethargic and unable to take any oral medications, etc. Note progressive cardiac enzymes as above. Hospitalization complicated by poor urine output and newly diagnosed anaerobic sepsis with hypotension as above. I did extensively recreational counselor the patient's and his son, Franco, concerning the patient's illnesses, today's hospital course and treatment, prognosis, etc. prior to patient's transfer. Emotional support was provided. Prognosis is extremely poor. - Patient Instructions Diet: NPO Activity: Bedrest - Discharge Plan *PRESCRIPTION DRUG MONITORING PROGRAM REVIEWED*: Not Applicable *COPY OF PRESCRIPTION DRUG MONITORING REPORT IN PATIENT NUVIA: Not Applicable Home Medications: Home Meds Cyanocobalamin (Vitamin B-12) [Vitamin B-12] 1,000 mcg PO DAILY 05/29/19 [ History] Folic Acid 1 mg PO DAILY 05/29/19 [History] Oseltamivir [Tamiflu] 30 mg PO BID 05/29/19 [History] Polyvinyl Alcohol [Artificial Tears] 1 - 2 drop EYEBOTH ASDIRECTED PRN 05/29/19 [History] Thiamine HCl [Vitamin B-1] 100 mg PO DAILY 05/29/19 [History] Venlafaxine HCl [Venlafaxine ER] 75 mg PO DAILY 05/29/19 [History] allopurinoL [Zyloprim] 100 mg PO DAILY 05/29/19 [History] atorvaSTATin [Lipitor] 10 mg PO DAILY 05/29/19 [History] carvediloL [Carvedilol] 25 mg PO BID 05/29/19 [History] chlordiazePOXIDE [Librium] 10 mg PO TID 05/29/19 [History] predniSONE [Prednisone] 5 mg PO DAILY 05/29/19 [History] Oxygen Therapy Mode: Nasal Cannula Oxygen Flow Rate (L/min): 2 Forms: ED Department Discharge, Interfacility Transfer EMTALA Referrals: Nhan Hernandez PA [Primary Care Provider] - - Discharge Summary/Plan Comment DC Time >30 min.: Yes (Coordination of care ) Discharge Summary/Plan Comment: As above. Extensive precautions were given to the patient's family, who is in agreement with the treatment plan. Ambulance transfer to [place] as above. - General Info Date of Service: 05/29/19 Admission Dx/Problem (Free Text: 1. CVA 2. CHF 3. COPD with pneumonia and recent influenza B infection 4. Possible LA Functional Status: Reports: Pain Controlled, Urinating (Urine output as above), New Symptoms (Hypotension). Denies: Tolerating Diet (Nothing by mouth), Ambulating - Review of Systems General: Reports: Fever, Weakness, Malaise, Chills, Night Sweats. Denies: Appetite HEENT: Reports: No Symptoms Pulmonary: Reports: Shortness of Breath, Cough, Wheezing. Denies: Pleuritic Chest Pain, Hemoptysis Cardiovascular: Denies: Chest Pain, Palpitations, Orthopnea Gastrointestinal: Reports: Difficulty Swallowing, Other (No bowel movement during hospitalization). Denies: Abdominal Pain, Constipation, Diarrhea, Flatus , Hematochezia, Melena, Nausea, Vomiting Genitourinary: Reports: Retention, Other (Duenas catheter therapy) Musculoskeletal: Reports: Joint Pain (Left knee), Joint Swelling (Left knee) Skin: Reports: Bruising (Stable bilateral arm from admission). Denies: Diaphoresis Neurological: Reports: Confusion, Tremors, Trouble Speaking, Difficulty Walking , Weakness. Denies: Seizure Psychiatric: Reports: Confusion. Denies: Agitation, Hallucinations - Patient Data Vitals - Most Recent: Last Vital Signs Temp 37.2 C 05/29/19 18:00 Pulse 67 05/29/19 18:00 Resp 14 05/29/19 18:00 BP 94/51 L 05/29/19 18:00 Pulse Ox 97 05/29/19 16:00 Vital Signs - 24 hr 05/29/19 05/29/19 05/29/19 08:25 08:37 08:52 Temperature [ Axillary] Temperature [ Oral] Temperature [ 37.3 C Temporal] Pulse, Peripheral Pulse, 86 80 77 Peripheral [ Left Pulse Oximetry] Respiratory 28 H 26 H 26 H Rate Blood Pressure Blood Pressure [Left Upper Arm ] Blood Pressure 154/83 H 150/79 H [Right Upper Arm] O2 Sat by Pulse 98 97 95 Oximetry 05/29/19 05/29/19 05/29/19 09:09 09:37 09:52 Temperature [ Axillary] Temperature [ Oral] Temperature [ Temporal] Pulse, Peripheral Pulse, 72 70 70 Peripheral [ Left Pulse Oximetry] Respiratory 26 H 26 H 27 H Rate Blood Pressure Blood Pressure 121/60 107/60 121/63 [Left Upper Arm ] Blood Pressure [Right Upper Arm] O2 Sat by Pulse 95 95 95 Oximetry 05/29/19 05/29/19 05/29/19 10:08 10:23 10:56 Temperature [ Axillary] Temperature [ Oral] Temperature [ 37.8 C Temporal] Pulse, Peripheral Pulse, 71 70 67 Peripheral [ Left Pulse Oximetry] Respiratory 28 H 26 H 28 H Rate Blood Pressure Blood Pressure 135/63 120/55 L 122/62 [Left Upper Arm ] Blood Pressure [Right Upper Arm] O2 Sat by Pulse 95 95 95 Oximetry 05/29/19 05/29/19 05/29/19 11:36 12:20 13:32 Temperature [ 38.7 C H Axillary] Temperature [ 36.9 C Oral] Temperature [ Temporal] Pulse, 68 Peripheral Pulse, 68 88 Peripheral [ Left Pulse Oximetry] Respiratory 16 20 Rate Blood Pressure 108/56 L Blood Pressure 90/47 L [Left Upper Arm ] Blood Pressure 108/56 L [Right Upper Arm] O2 Sat by Pulse 92 L 92 L Oximetry 05/29/19 05/29/19 05/29/19 15:05 16:00 18:00 Temperature [ 36.9 C 37.2 C Axillary] Temperature [ 36.7 C Oral] Temperature [ Temporal] Pulse, Peripheral Pulse, 65 67 Peripheral [ Left Pulse Oximetry] Respiratory 14 14 Rate Blood Pressure Blood Pressure 81/40 L 94/51 L [Left Upper Arm ] Blood Pressure [Right Upper Arm] O2 Sat by Pulse 97 Oximetry 05/29/19 05/29/19 20:00 21:00 Temperature [ 36.8 C 36.7 C Axillary] Temperature [ Oral] Temperature [ Temporal] Pulse, Peripheral Pulse, 78 76 Peripheral [ Left Pulse Oximetry] Respiratory 24 H 16 Rate Blood Pressure Blood Pressure 106/63 108/63 [Left Upper Arm ] Blood Pressure [Right Upper Arm] O2 Sat by Pulse Oximetry Weight - Most Recent: 81.193 kg I&O - Last 24 hours: Intake & Output 05/29/19 05/29/19 05/29/19 06:59 14:59 22:59 Output Total 300 Balance -300 Imaging Impressions - Last 24 hrs: bus driver/monitor showed normal sinus rhythm in the 70s to 80s with no ectopy or arrhythmia. Venous Doppler studies of the lower extremities bilaterally showed no evidence of DVT. CT of the head without contrast no acute changes or evidence of CVA/hemorrhage sinus disease, and moderate cerebral atrophy. Chest x-ray, portable, shows moderate to severe cardiomegaly with moderate prominence of the proximal aortic arch with mild to moderate CHF. Moderate COPD changes with no pulmonary infiltrates, pneumothorax, etc.. Note status post medial sternotomy and right shoulder total arthroplasty. X-ray of the left knee, 2 views, shows a stable total knee arthroplasty with no evidence of fracture, loosening, etc. Lab Results - Last 24 hrs: Laboratory Results - last 24 hr 05/29/19 05/29/19 05/29/19 Range/Units 08:35 08:53 08:53 WBC 13.5 H (4.0-10.2) K/uL RBC 3.87 L (4.33-5.41) M/uL Hgb 12.2 L D (13.1-16.8) g/dL Hct 36.6 L (39.0-49.0) % MCV 94.6 (84.0-98.0) fL MCH 31.5 (28.2-33.3) pg MCHC 33.3 (31.7-36.0) g/dL RDW 13.0 (11.2-14.1) % Plt Count 289 (150-350) K/uL Neut % (Auto) 87.2 H (45.0-80.0) % Lymph % (Auto) 8.7 L (10.0-50.0) % [place] % (Auto) 3.3 (2.0-14.0) % Eos % (Auto) 0.6 (0.0-5.0) % Baso % (Auto) 0.2 (0.0-2.0) % Neut # (Auto) 11.78 H (1.40-7.00) K/uL Lymph # (Auto) 1.18 (0.50-3.50) K/uL [place] # (Auto) 0.44 (0.00-1.00) K/uL Eos # (Auto) 0.08 (0.00-0.50) K/uL Baso # (Auto) 0.03 (0.00-0.20) K/uL PT 11.2 (9.5-12.0) SEC INR 1.1 APTT 23.5 L (24.5-32.8) SEC D-Dimer, Quantitative (0-400) ng/mL Sodium (136-145) mmol/L Potassium (3.5-5.1) mmol/L Chloride (98-107) mmol/L Carbon Dioxide (21.0-32.0) mmol/L BUN (7-18) mg/dL Creatinine (0.51-1.17) mg/dL Est Cr Clr Drug Dosing Estimated GFR (MDRD) mL/min Glucose (74-106) mg/dL POC Glucose 95 (65-110) mg/dl Hemoglobin A1c (4.3-5.7) % Lactic Acid (0.4-2.0) mmol/L Uric Acid (2.6-7.2) mg/dL Calcium (8.5-10.1) mg/dL Magnesium (1.8-2.4) mg/dL Total Bilirubin (0.2-1.0) mg/dL AST (15-37) U/L ALT (12-78) U/L Alkaline Phosphatase (46-116) IU/L Creatine Kinase (26-308) U/L Creatine Kinase Index (0.0-2.5) % CK-MB (CK-2) (0.00-3.60) ng/mL Troponin I (0.000-0.056) ng/mL NT-Pro-B Natriuret Pep (0-125) pg/mL Total Protein (6.4-8.2) g/dL Albumin (3.4-5.0) g/dL Triglycerides (30-150) mg/dL Cholesterol (100-200) mg/dL LDL Cholesterol, Calc (0-100) mg/dL HDL Cholesterol (40-60) mg/dL TSH, Ultra Sensitive (0.358-3.740) mIU/mL Specimen Type Urine Color Urine Appearance Urine pH (5.0-9.0) Ur Specific [place] (1.005-1.030) Urine Protein (NEGATIVE) mg/dL Urine Glucose (UA) (NEGATIVE) mg/dL Urine Ketones (NEGATIVE) mg/dL Urine Occult Blood (NEGATIVE) Urine Nitrite (NEGATIVE) Urine Bilirubin (NEGATIVE) Urine Urobilinogen (0.2-1.0) E.U./dL Ur Leukocyte Esterase (NEGATIVE) Urine RBC /HPF Urine WBC /HPF Urine Bacteria (NONE TO FEW) /HPF Ethyl Alcohol (0.000-0.080) g/dL 05/29/19 05/29/19 05/29/19 Range/Units 08:53 08:53 08:53 WBC (4.0-10.2) K/uL RBC (4.33-5.41) M/uL Hgb (13.1-16.8) g/dL Hct (39.0-49.0) % MCV (84.0-98.0) fL MCH (28.2-33.3) pg MCHC (31.7-36.0) g/dL RDW (11.2-14.1) % Plt Count (150-350) K/uL Neut % (Auto) (45.0-80.0) % Lymph % (Auto) (10.0-50.0) % [place] % (Auto) (2.0-14.0) % Eos % (Auto) (0.0-5.0) % Baso % (Auto) (0.0-2.0) % Neut # (Auto) (1.40-7.00) K/uL Lymph # (Auto) (0.50-3.50) K/uL [place] # (Auto) (0.00-1.00) K/uL Eos # (Auto) (0.00-0.50) K/uL Baso # (Auto) (0.00-0.20) K/uL PT (9.5-12.0) SEC INR APTT (24.5-32.8) SEC D-Dimer, Quantitative 4900 H (0-400) ng/mL Sodium 134 L (136-145) mmol/L Potassium 4.7 (3.5-5.1) mmol/L Chloride 102 (98-107) mmol/L Carbon Dioxide 19.5 L (21.0-32.0) mmol/L BUN 28 H (7-18) mg/dL Creatinine 2.42 H (0.51-1.17) mg/dL Est Cr Clr Drug Dosing TNP Estimated GFR (MDRD) 26 mL/min Glucose 98 (74-106) mg/dL POC Glucose (65-110) mg/dl Hemoglobin A1c (4.3-5.7) % Lactic Acid 2.4 H (0.4-2.0) mmol/L Uric Acid 7.2 (2.6-7.2) mg/dL Calcium 8.8 (8.5-10.1) mg/dL Magnesium 1.0 L (1.8-2.4) mg/dL Total Bilirubin 0.7 (0.2-1.0) mg/dL AST 92 H (15-37) U/L ALT 57 (12-78) U/L Alkaline Phosphatase 149 H (46-116) IU/L Creatine Kinase 936 H (26-308) U/L Creatine Kinase Index 0.3 (0.0-2.5) % CK-MB (CK-2) 2.40 (0.00-3.60) ng/mL Troponin I 1.542 H* (0.000-0.056) ng/mL NT-Pro-B Natriuret Pep 8975 H (0-125) pg/mL Total Protein 7.2 (6.4-8.2) g/dL Albumin 2.5 L (3.4-5.0) g/dL Triglycerides (30-150) mg/dL Cholesterol (100-200) mg/dL LDL Cholesterol, Calc (0-100) mg/dL HDL Cholesterol (40-60) mg/dL TSH, Ultra Sensitive 0.626 (0.358-3.740) mIU/mL Specimen Type Urine Color Urine Appearance Urine pH (5.0-9.0) Ur Specific [place] (1.005-1.030) Urine Protein (NEGATIVE) mg/dL Urine Glucose (UA) (NEGATIVE) mg/dL Urine Ketones (NEGATIVE) mg/dL Urine Occult Blood (NEGATIVE) Urine Nitrite (NEGATIVE) Urine Bilirubin (NEGATIVE) Urine Urobilinogen (0.2-1.0) E.U./dL Ur Leukocyte Esterase (NEGATIVE) Urine RBC /HPF Urine WBC /HPF Urine Bacteria (NONE TO FEW) /HPF Ethyl Alcohol (0.000-0.080) g/dL 05/29/19 05/29/19 05/29/19 Range/Units 08:53 10:10 11:00 WBC (4.0-10.2) K/uL RBC (4.33-5.41) M/uL Hgb (13.1-16.8) g/dL Hct (39.0-49.0) % MCV (84.0-98.0) fL MCH (28.2-33.3) pg MCHC (31.7-36.0) g/dL RDW (11.2-14.1) % Plt Count (150-350) K/uL Neut % (Auto) (45.0-80.0) % Lymph % (Auto) (10.0-50.0) % [place] % (Auto) (2.0-14.0) % Eos % (Auto) (0.0-5.0) % Baso % (Auto) (0.0-2.0) % Neut # (Auto) (1.40-7.00) K/uL Lymph # (Auto) (0.50-3.50) K/uL [place] # (Auto) (0.00-1.00) K/uL Eos # (Auto) (0.00-0.50) K/uL Baso # (Auto) (0.00-0.20) K/uL PT (9.5-12.0) SEC INR APTT (24.5-32.8) SEC D-Dimer, Quantitative (0-400) ng/mL Sodium (136-145) mmol/L Potassium (3.5-5.1) mmol/L Chloride (98-107) mmol/L Carbon Dioxide (21.0-32.0) mmol/L BUN (7-18) mg/dL Creatinine (0.51-1.17) mg/dL Est Cr Clr Drug Dosing Estimated GFR (MDRD) mL/min Glucose (74-106) mg/dL POC Glucose (65-110) mg/dl Hemoglobin A1c (4.3-5.7) % Lactic Acid 2.4 H (0.4-2.0) mmol/L Uric Acid (2.6-7.2) mg/dL Calcium (8.5-10.1) mg/dL Magnesium (1.8-2.4) mg/dL Total Bilirubin (0.2-1.0) mg/dL AST (15-37) U/L ALT (12-78) U/L Alkaline Phosphatase (46-116) IU/L Creatine Kinase (26-308) U/L Creatine Kinase Index (0.0-2.5) % CK-MB (CK-2) (0.00-3.60) ng/mL Troponin I (0.000-0.056) ng/mL NT-Pro-B Natriuret Pep (0-125) pg/mL Total Protein (6.4-8.2) g/dL Albumin (3.4-5.0) g/dL Triglycerides (30-150) mg/dL Cholesterol (100-200) mg/dL LDL Cholesterol, Calc (0-100) mg/dL HDL Cholesterol (40-60) mg/dL TSH, Ultra Sensitive (0.358-3.740) mIU/mL Specimen Type [place] Urine Color Yellow Urine Appearance Clear Urine pH 6.0 (5.0-9.0) Ur Specific [place] 1.020 (1.005-1.030) Urine Protein >=300 H (NEGATIVE) mg/dL Urine Glucose (UA) Negative (NEGATIVE) mg/dL Urine Ketones Negative (NEGATIVE) mg/dL Urine Occult Blood Small H (NEGATIVE) Urine Nitrite Negative (NEGATIVE) Urine Bilirubin Negative (NEGATIVE) Urine Urobilinogen 0.2 (0.2-1.0) E.U./dL Ur Leukocyte Esterase Negative (NEGATIVE) Urine RBC 0-5 /HPF Urine WBC 0-5 /HPF Urine Bacteria Few (NONE TO FEW) /HPF Ethyl Alcohol 0.000 (0.000-0.080) g/dL 05/29/19 05/29/19 05/29/19 Range/Units 12:55 12:55 18:50 WBC (4.0-10.2) K/uL RBC (4.33-5.41) M/uL Hgb (13.1-16.8) g/dL Hct (39.0-49.0) % MCV (84.0-98.0) fL MCH (28.2-33.3) pg MCHC (31.7-36.0) g/dL RDW (11.2-14.1) % Plt Count (150-350) K/uL Neut % (Auto) (45.0-80.0) % Lymph % (Auto) (10.0-50.0) % [place] % (Auto) (2.0-14.0) % Eos % (Auto) (0.0-5.0) % Baso % (Auto) (0.0-2.0) % Neut # (Auto) (1.40-7.00) K/uL Lymph # (Auto) (0.50-3.50) K/uL [place] # (Auto) (0.00-1.00) K/uL Eos # (Auto) (0.00-0.50) K/uL Baso # (Auto) (0.00-0.20) K/uL PT (9.5-12.0) SEC INR APTT (24.5-32.8) SEC D-Dimer, Quantitative (0-400) ng/mL Sodium (136-145) mmol/L Potassium (3.5-5.1) mmol/L Chloride (98-107) mmol/L Carbon Dioxide (21.0-32.0) mmol/L BUN (7-18) mg/dL Creatinine (0.51-1.17) mg/dL Est Cr Clr Drug Dosing Estimated GFR (MDRD) mL/min Glucose (74-106) mg/dL POC Glucose (65-110) mg/dl Hemoglobin A1c 5.5 (4.3-5.7) % Lactic Acid (0.4-2.0) mmol/L Uric Acid (2.6-7.2) mg/dL Calcium (8.5-10.1) mg/dL Magnesium (1.8-2.4) mg/dL Total Bilirubin (0.2-1.0) mg/dL AST (15-37) U/L ALT (12-78) U/L Alkaline Phosphatase (46-116) IU/L Creatine Kinase 2509 H 2416 H (26-308) U/L Creatine Kinase Index 0.1 0.1 (0.0-2.5) % CK-MB (CK-2) 3.70 H 3.30 (0.00-3.60) ng/mL Troponin I 4.786 H* 6.269 H* (0.000-0.056) ng/mL NT-Pro-B Natriuret Pep (0-125) pg/mL Total Protein (6.4-8.2) g/dL Albumin (3.4-5.0) g/dL Triglycerides 78 (30-150) mg/dL Cholesterol 113 (100-200) mg/dL LDL Cholesterol, Calc 61 (0-100) mg/dL HDL Cholesterol 36 L (40-60) mg/dL TSH, Ultra Sensitive (0.358-3.740) mIU/mL Specimen Type Urine Color Urine Appearance Urine pH (5.0-9.0) Ur Specific [place] (1.005-1.030) Urine Protein (NEGATIVE) mg/dL Urine Glucose (UA) (NEGATIVE) mg/dL Urine Ketones (NEGATIVE) mg/dL Urine Occult Blood (NEGATIVE) Urine Nitrite (NEGATIVE) Urine Bilirubin (NEGATIVE) Urine Urobilinogen (0.2-1.0) E.U./dL Ur Leukocyte Esterase (NEGATIVE) Urine RBC /HPF Urine WBC /HPF Urine Bacteria (NONE TO FEW) /HPF Ethyl Alcohol (0.000-0.080) g/dL 05/29/19 Range/Units 18:50 WBC (4.0-10.2) K/uL RBC (4.33-5.41) M/uL Hgb (13.1-16.8) g/dL Hct (39.0-49.0) % MCV (84.0-98.0) fL MCH (28.2-33.3) pg MCHC (31.7-36.0) g/dL RDW (11.2-14.1) % Plt Count (150-350) K/uL Neut % (Auto) (45.0-80.0) % Lymph % (Auto) (10.0-50.0) % [place] % (Auto) (2.0-14.0) % Eos % (Auto) (0.0-5.0) % Baso % (Auto) (0.0-2.0) % Neut # (Auto) (1.40-7.00) K/uL Lymph # (Auto) (0.50-3.50) K/uL [place] # (Auto) (0.00-1.00) K/uL Eos # (Auto) (0.00-0.50) K/uL Baso # (Auto) (0.00-0.20) K/uL PT (9.5-12.0) SEC INR APTT (24.5-32.8) SEC D-Dimer, Quantitative (0-400) ng/mL Sodium (136-145) mmol/L Potassium (3.5-5.1) mmol/L Chloride (98-107) mmol/L Carbon Dioxide (21.0-32.0) mmol/L BUN (7-18) mg/dL Creatinine (0.51-1.17) mg/dL Est Cr Clr Drug Dosing Estimated GFR (MDRD) mL/min Glucose (74-106) mg/dL POC Glucose (65-110) mg/dl Hemoglobin A1c (4.3-5.7) % Lactic Acid 3.1 H (0.4-2.0) mmol/L Uric Acid (2.6-7.2) mg/dL Calcium (8.5-10.1) mg/dL Magnesium (1.8-2.4) mg/dL Total Bilirubin (0.2-1.0) mg/dL AST (15-37) U/L ALT (12-78) U/L Alkaline Phosphatase (46-116) IU/L Creatine Kinase (26-308) U/L Creatine Kinase Index (0.0-2.5) % CK-MB (CK-2) (0.00-3.60) ng/mL Troponin I (0.000-0.056) ng/mL NT-Pro-B Natriuret Pep (0-125) pg/mL Total Protein (6.4-8.2) g/dL Albumin (3.4-5.0) g/dL Triglycerides (30-150) mg/dL Cholesterol (100-200) mg/dL LDL Cholesterol, Calc (0-100) mg/dL HDL Cholesterol (40-60) mg/dL TSH, Ultra Sensitive (0.358-3.740) mIU/mL Specimen Type Urine Color Urine Appearance Urine pH (5.0-9.0) Ur Specific [place] (1.005-1.030) Urine Protein (NEGATIVE) mg/dL Urine Glucose (UA) (NEGATIVE) mg/dL Urine Ketones (NEGATIVE) mg/dL Urine Occult Blood (NEGATIVE) Urine Nitrite (NEGATIVE) Urine Bilirubin (NEGATIVE) Urine Urobilinogen (0.2-1.0) E.U./dL Ur Leukocyte Esterase (NEGATIVE) Urine RBC /HPF Urine WBC /HPF Urine Bacteria (NONE TO FEW) /HPF Ethyl Alcohol (0.000-0.080) g/dL LALO Results - Last 24 hrs: Microbiology 05/29/19 08:53 Anaerobic Blood Culture - Preliminary Blood - Venous Anaerobic blood culture positive for gram-positive cocci in chains Med Orders - Current: Current Medications Albuterol (Proventil Neb Soln) 2.5 mg INH Q2H PRN PRN Reason: SHORTNESS OF BREATH Albuterol/Ipratropium (Duoneb 3.0-0.5 Mg/3 Ml) 3 ml NEB Q4HRRT PRN PRN Reason: Dyspnea Albuterol/Ipratropium (Duoneb 3.0-0.5 Mg/3 Ml) 3 ml NEB Q6HRRT [place] Enoxaparin Sodium (Lovenox) 80 mg SUBCUT Q24H [facility] Last Admin: 05/29/19 12:21 Dose: 80 mg Furosemide (Lasix) 20 mg IVPUSH Q12H [place] Levofloxacin/Dextrose 500 mg/ (Premix) 100 mls @ 100 mls/hr IV Q48H [facility] Last Admin: 05/29/19 14:59 Dose: 100 mls/hr Methylprednisolone Sodium Succinate (Solu-Medrol) 125 mg IVPUSH DAILY [facility] Last Admin: 05/29/19 14:59 Dose: 125 mg Metoprolol Tartrate (Lopressor) 2.5 mg IVPUSH Q6H [facility] Last Admin: 05/29/19 17:41 Dose: Not Given Saliva Substitute ([place]-Stir Oral [place]) 0 ml MUCMEM ASDIRECTED PRN PRN Reason: Dryness Last Admin: 05/29/19 18:08 Dose: 1 spray Sodium Chloride (Saline Flush) 10 ml FLUSH ASDIRECTED PRN PRN Reason: Keep Vein Open Last Admin: 05/29/19 09:56 Dose: 10 ml Sodium Chloride (Saline Flush) 10 ml FLUSH Q12HR PRN PRN Reason: Keep Vein Open Last Admin: 05/29/19 15:00 Dose: 10 ml Discontinued Medications Ceftriaxone Sodium (Rocephin) Confirm Administered Dose 1 gm .ROUTE .STK-MED ONE Stop: 05/29/19 12:18 Last Admin: 05/29/19 12:39 Dose: Not Given Famotidine (Pepcid) 40 mg IVPUSH ONETIME ONE Stop: 05/29/19 08:35 Last Admin: 05/29/19 09:05 Dose: 40 mg Famotidine (Pepcid) Confirm Administered Dose 40 mg .ROUTE .STK-MED ONE Stop: 05/29/19 09:05 Last Admin: 05/29/19 09:11 Dose: Not Given Furosemide (Lasix) 60 mg IVPUSH NOW ONE Stop: 05/29/19 09:43 Last Admin: 05/29/19 09:55 Dose: 60 mg Furosemide (Lasix) 40 mg IVPUSH Q8H [place] Ceftriaxone Sodium 1 gm/ (Sodium Chloride) 100 mls @ 200 mls/hr IV ONETIME ONE Stop: 05/29/19 10:11 Last Admin: 05/29/19 12:20 Dose: 200 mls/hr Magnesium Sulfate 4 gm/ Premix 100 mls @ 200 mls/hr IV ONETIME ONE Stop: 05/29/19 12:11 Last Admin: 05/29/19 12:58 Dose: 200 mls/hr Potassium Chloride (Klor-Con M20) 20 meq PO BID [place] - Exam Quality Assessment: Reports: Supplemental Oxygen, Urine Catheter, DVT Prophylaxis (Lovenox). Denies: Skin Breakdown, Restraints General: Reports: Mild Distress, Lethargic HEENT: Reports: Pupils Equal, Pupils Reactive, EOMI, Mucous Membr. Moist/[place] Neck: Reports: Supple, Trachea Midline, No JVD, No Thyromegaly, Carotid Bruit ( Mild bilateral carotid bruits). Denies: Lymphadenopathy Lungs: Reports: Normal Respiratory Effort, Rales (Improved mostly mild bilateral basilar rales). Denies: Rhonchi, Rub, Wheezing Cardiovascular: Reports: Regular Rate, Regular Rhythm, No Murmurs. Denies: Gallops, Rubs GI/Abdominal Exam: Normal Bowel Sounds, Soft, Non-Tender, No Organomegaly, No Distention, No Abnormal Bruit, No Mass, Pelvis Stable, Other (Obese). No: Guarding (Male) Exam: Deferred Rectal (Males) Exam: Deferred Back Exam: Reports: Normal Inspection, Full Range of Motion. Denies: CVA Tenderness (L), CVA Tenderness (R), Muscle Spasm Extremities: Pedal Edema (Improved trace bilateral pedal/pretibial edema), Joint Swelling (Left knee with moderate localized tenderness but no deformity). No: Calvin's Sign, Increased Warmth Skin: Reports: Ecchymosis (Stable ecchymosis of the arms bilaterally and right lateral thigh) Neurological: Reports: No New Focal Deficit, Other (Negative Babinski's. Somewhat more alert) Psy/Mental Status: Denies: Agitated, Hallucinations, Withdrawal Symptoms
[2019-05-29] MEDS ORDERED: Norepinephrine 4 MG in Dextrose 5% in Water 246 ML IV SCH ×10 (20:15→21:00)
[2019-05-29] MEDS ORDERED: Norepinephrine 4 MG in Dextrose 5% in Water 246 ML IV ONE ×2 (20:45)
[2019-05-30] MEDS ORDERED: Furosemide 20 MG/2 ML VIAL IVPUSH SCH (07:00)
== END 2019-05-29 22:25 | DRG 871 ==
LOC: LL.ED 08:22 → LL.MS 10:43 → UNDOADMIN 10:43 → LL.MS 11:03
PROVIDERS: ADMIT Family Medicine; ATTEND Family Medicine
DX: A41.9 Sepsis, unspecified organism (principal); I21.9 Acute myocardial infarction, unspecified; I63.9 Cerebral infarction, unspecified; R74.0 Nonspecific elevation of levels of transaminase and lactic acid dehydrogenase [LDH]; J10.00 Influenza due to other identified influenza virus with unspecified type of pneumonia; I50.33 Acute on chronic diastolic (congestive) heart failure; J44.0 Chronic obstructive pulmonary disease with (acute) lower respiratory infection; I13.0 Hypertensive heart and chronic kidney disease with heart failure and stage 1 through stage 4 chronic kidney disease, or unspecified chronic kidney disease; E87.2 Acidosis; R79.1 Abnormal coagulation profile; Z51.5 Encounter for palliative care; E83.42 Hypomagnesemia; F41.8 Other specified anxiety disorders; N28.9 Disorder of kidney and ureter, unspecified; G20 Parkinson's disease; H54.7 Unspecified visual loss; H91.13 Presbycusis, bilateral; H35.3210 Exudative age-related macular degeneration, right eye, stage unspecified; M1A.9XX0 Chronic gout, unspecified, without tophus (tophi); I44.0 Atrioventricular block, first degree; K57.90 Diverticulosis of intestine, part unspecified, without perforation or abscess without bleeding; N18.9 Chronic kidney disease, unspecified; M19.90 Unspecified osteoarthritis, unspecified site; G89.29 Other chronic pain; M54.9 Dorsalgia, unspecified; M54.2 Cervicalgia; R79.89 Other specified abnormal findings of blood chemistry; E53.8 Deficiency of other specified B group vitamins; Z96.611 Presence of right artificial shoulder joint; Z96.653 Presence of artificial knee joint, bilateral; R29.716 NIHSS score 16; M06.9 Rheumatoid arthritis, unspecified; E78.00 Pure hypercholesterolemia, unspecified; N40.0 Benign prostatic hyperplasia without lower urinary tract symptoms; E66.9 Obesity, unspecified; Z87.891 Personal history of nicotine dependence; Z79.52 Long term (current) use of systemic steroids; Z79.899 Other long term (current) drug therapy; Z68.27 Body mass index [BMI] 27.0-27.9, adult
CPT/HCPCS: 36415; 70450; 71045; 80053; 80307; 81001; 82550; 82553; 82962; 83605 ×2; 83735; 83880; 84146; 84443; 84484; 84550; 85025; 85379; 85610; 85730; 87040 ×2; 93005; J1940; J3490; 73560-LT; 80061; 83036; 87086; 93970; A9270-GY; J0696; J1650; J1956; J2930; J3475; J7050; J7060

== ENCOUNTER 2019-06-11 10:20 | Emergency (ER) | payer MEDICARE, BC ==
[2019-06-11] MEDS: Sodium Chloride 0.9% 10 ML Syringe FLUSH PRN (10:41)
--- NOTE | 2019-06-11 12:11 | EDM.PDOC ---
ED HPI GENERAL MEDICAL PROBLEM - General Chief Complaint: General Stated Complaint: lethargy, infection Time Seen by Provider: 06/11/19 10:30 Source of Information: Reports: Patient, EMS, Alf Records - History of Present Illness INITIAL COMMENTS - FREE TEXT/NARRATIVE: Pt sent to Er for episode of lethargy and decreased breathing per care center Pt states he was just sleeping hard Pt has been at care center for several days for IV antibiotics after being in [facility] for sepsis Pt has no specific complaints Location: Reports: Generalized - Related Data Allergies Allergy/AdvReac Type Severity Reaction Status Date / Time No Known Allergies Allergy Verified 06/11/19 10:22 Home Meds: Home Meds Folic Acid 1 mg PO DAILY 05/29/19 [History] Polyvinyl Alcohol [Artificial Tears] 2 drop EYEBOTH ASDIRECTED PRN 05/29/19 [ History] Venlafaxine HCl [Venlafaxine ER] 75 mg PO DAILY 05/29/19 [History] allopurinoL [Zyloprim] 100 mg PO DAILY 05/29/19 [History] atorvaSTATin [Lipitor] 10 mg PO DAILY 05/29/19 [History] carvediloL [Carvedilol] 50 mg PO BID 05/29/19 [History] predniSONE [Prednisone] 5 mg PO DAILY 05/29/19 [History] Cyanocobalamin (Vitamin B-12) [Vitamin B-12] 1 tab PO DAILY 06/11/19 [History] Heparin Sodium [Heparin Lock Flush 100 Units/ML] 300 unit FLUSH DAILY 06/11/19 [ History] Losartan Potassium 100 mg PO BEDTIME 06/11/19 [History] Nystatin [Nystatin Crm] 15 gm TOP BID 06/11/19 [History] QUEtiapine Fumarate [Quetiapine Fumarate] 0.5 tab PO BEDTIME 06/11/19 [History] cefTRIAXone Sodium [Ceftriaxone] 2 gm IV DAILY 06/11/19 [History] hydroCHLOROthiazide [Hydrochlorothiazide] 25 mg PO DAILY 06/11/19 [History] Past Medical History HEENT History: Reports: Allergic Rhinitis, Hard of Hearing, Impaired Vision, Macular Degeneration, Other (See Below) Other HEENT History: Bilateral presbycusis. Patient does wear glasses. 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 Cardiovascular History: Reports: Arrhythmia, High Cholesterol, Hypertension, Other (See Below) Other Cardiovascular History: Grade 1 diastolic dysfunction. First degree AV block. Respiratory History: Reports: Bronchitis, Recurrent, COPD, Intubation, Previous , Other (See Below) Other Respiratory History: COPD by chest x-ray with no current medical therapy. 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 Genitourinary History: Reports: BPH, Chronic Renal Insuffiency, Other (See Below ) Other Genitourinary History: Stable right renal complex cyst and bilateral renal cysts by evaluations as below. 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 Stage IV chronic renal insufficiency. Musculoskeletal History: Reports: Arthritis, Back Pain, Chronic, Fracture, Gout , Neck Pain, Chronic, Osteoarthritis, Other (See Below) Other Musculoskeletal History: Right coracoid process hairline fracture extending to the scapula on 05/13/18. Neurological History: Reports: Other (See Below) Other Neuro History: No history of alcohol-induced seizures. Cerebral microvascular disease and cerebral atrophy by CT scan. Psychiatric History: Reports: Addiction, Anxiety, Depression, Psychosis, Other ( See Below) Other Psychiatric History: History of alcohol abuse with secondary DTs. Endocrine/Metabolic History: Reports: Obesity/BMI 30+ Hematologic History: Reports: B12 Deficiency Immunologic History: Reports: None Oncologic (Cancer) History: Reports: None Dermatologic History: Reports: Eczema - Infectious Disease History Infectious Disease History: Reports: Chicken Pox, Other (See Below). Denies: C- Difficile, Meningitis, Mononucleosis, MRSA, TB Other Infectious Disease History: uncertain of childhood diseases. Sepsis of unknown source. - Past Surgical History Head Surgeries/Procedures: Reports: None HEENT Surgical History: Reports: Oral Surgery, Other (See Below) Other HEENT Surgeries/Procedures: Multiple teeth extractions with complete upper dentures. Cardiovascular Surgical History: Reports: None Respiratory Surgical History: Reports: None GI Surgical History: Reports: None Male Surgical History: Reports: Circumcision, Other (See Below) Other Male Surgeries/Procedures: Circumcision at age 1. Endocrine Surgical History: Reports: None Neurological Surgical History: Reports: None Musculoskeletal Surgical History: Reports: Joint Replacement, Shoulder Surgery, Other (See Below) Other Musculoskeletal Surgeries/Procedures:: Right shoulder reverse total arthroplasty on 05/13/18. Right total knee arthroplasty on 5/6/16. A left total knee arthroplasty on 08/15/17. Oncologic Surgical History: Reports: None Dermatological Surgical History: Reports: None - Past Imaging History Past Imaging History: Reports: Cardiac Echo (Echocardiogram on 12/01/17 with ejection fraction of 6065 percent otherwise with findings as above.), CAT Scan (CT of the head on 05/24/19 and 03/04/10. CT of the right shoulder on 07/24/18. CT of the abdomen and pelvis on 10/29/08 and 04/15/08.), MRI (Stephanie of the right foot on 12/03/17.) - History Comment History Comment: History from medical records and patient's Social & Family History - Family History HEENT: Reports: None Cardiac: Reports: None Respiratory: Reports: None GI: Reports: Colon Polyps, Other (See Below) Other GI Family History: Mother with history of colonic polyps in her 60s. OBGYN: Reports: None Musculoskeletal: Reports: None Neurological: Reports: Alzheimers Disease, CVA, Dementia, Other (See Below) Other Neurological Family History: Mother with organic brain syndrome. Sister with CVA at about age 70. Psychiatric: Reports: Anxiety, Depression, Other (See Below) Other Psychiatric Family History: Mother with anxiety depression disorder. Endocrine/Metabolic: Reports: None Hematologic: Reports: None Immunologic: Reports: None Dermatologic: Reports: Eczema, Other (See Below) Other Dermatologic Family History: Sister with eczema. Oncologic: Reports: Hodgkin's Lymphoma, Other (See Below) Other Oncologic Family History: Father with fatal Hodgkin's disease at age 43. - Tobacco Use Smoking Status *Q: Never Smoker Second Hand Smoke Exposure: No - Caffeine Use Caffeine Use: Reports: Coffee (1 Cup per month). 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.) ED ROS GENERAL - Review of Systems Review Of Systems: See Below Respiratory: Reports: Shortness of Breath ED EXAM, GENERAL - Physical Exam Exam: See Below Exam Limited By: No Limitations General Appearance: Alert, No Apparent Distress Throat/Mouth: Normal Oropharynx Neck: Supple Respiratory/Chest: Decreased Breath Sounds Cardiovascular: Regular Rate, Rhythm Extremities: Non-Tender, No Pedal Edema Neurological: Alert, Oriented, No Motor/Sensory Deficits Psychiatric: Normal Affect Skin Exam: Warm, Dry, Intact Course - Vital Signs Last Recorded V/S: Last Vital Signs Temp 97.9 F 06/11/19 10:30 Pulse 57 L 06/11/19 10:45 Resp 20 06/11/19 10:45 BP 116/52 L 06/11/19 10:45 Pulse Ox 95 06/11/19 10:45 - Orders/Labs/Meds Orders: Active Orders 24 hr Category Date Time Status Central Line Assessment [RC] Q12H Care 06/11/19 10:45 Active Communication Order [RC] DAILY Care 06/11/19 11:00 Active Heparin Sodium [Heparin Lock Flush 100 Units/ML] Med 06/11/19 10:22 Active 300 units FLUSH ASDIRECTED PRN Sodium Chloride 0.9% [Saline Flush] Med 06/11/19 10:59 Active 10 ml FLUSH ASDIRECTED PRN Medication Orders Heparin Sodium (Porcine) (Heparin Lock Flush 100 Units/Ml) 300 units FLUSH ASDIRECTED PRN PRN Reason: flush Last Admin: 06/11/19 10:41 Dose: 300 units Sodium Chloride (Saline Flush) 10 ml FLUSH ASDIRECTED PRN PRN Reason: Keep Vein Open Last Admin: 06/11/19 10:41 Dose: 10 ml Labs: Laboratory Tests 06/11/19 06/11/19 06/11/19 Range/Units 10:55 10:55 10:55 WBC 11.1 H (4.0-10.2) K/uL RBC 2.67 L (4.33-5.41) M/uL Hgb 8.3 L D (13.1-16.8) g/dL Hct 25.1 L (39.0-49.0) % MCV 94.0 (84.0-98.0) fL MCH 31.1 (28.2-33.3) pg MCHC 33.1 (31.7-36.0) g/dL RDW 13.8 (11.2-14.1) % Plt Count 464 H D (150-350) K/uL Neut % (Auto) 73.4 (45.0-80.0) % Lymph % (Auto) 12.7 (10.0-50.0) % [place] % (Auto) 12.1 (2.0-14.0) % Eos % (Auto) 1.0 (0.0-5.0) % Baso % (Auto) 0.8 (0.0-2.0) % Neut # (Auto) 8.15 H (1.40-7.00) K/uL Lymph # (Auto) 1.41 (0.50-3.50) K/uL [place] # (Auto) 1.34 H (0.00-1.00) K/uL Eos # (Auto) 0.11 (0.00-0.50) K/uL Baso # (Auto) 0.09 (0.00-0.20) K/uL Sodium 131 L (136-145) mmol/L Potassium 3.9 (3.5-5.1) mmol/L Chloride 102 (98-107) mmol/L Carbon Dioxide 17.9 L (21.0-32.0) mmol/L BUN 34 H (7-18) mg/dL Creatinine 2.37 H (0.51-1.17) mg/dL Est Cr Clr Drug Dosing 25.18 mL/min Estimated GFR (MDRD) 27 mL/min Glucose 134 H (74-106) mg/dL Lactic Acid 1.7 (0.4-2.0) mmol/L Calcium 7.8 L (8.5-10.1) mg/dL Total Bilirubin 0.3 (0.2-1.0) mg/dL AST 39 H (15-37) U/L ALT 47 (12-78) U/L Alkaline Phosphatase 146 H (46-116) IU/L Total Protein 7.0 (6.4-8.2) g/dL Albumin 1.5 L (3.4-5.0) g/dL Meds: Medications Generic Name Dose Route Start Last Admin Trade Name Freq PRN Reason Stop Dose Admin Heparin Sodium (Porcine) 300 units 06/11/19 10:22 06/11/19 10:41 Heparin Lock Flush 100 Units/Ml FLUSH 300 units ASDIRECTED PRN Administration flush Sodium Chloride 10 ml 06/11/19 10:59 06/11/19 10:41 Saline Flush FLUSH 10 ml ASDIRECTED PRN Administration Keep Vein Open - Re-Assessments/Exams Free Text/Narrative Re-Assessment/Exam: 06/11/19 12:10 See lab Pt stable in ER Departure - Departure Time of Disposition: 12:15 Disposition: DC/Tfer to SNF 03 Clinical Impression: Confusion and disorientation - Discharge Information *PRESCRIPTION DRUG MONITORING PROGRAM REVIEWED*: Not Applicable *COPY OF PRESCRIPTION DRUG MONITORING REPORT IN PATIENT NUVIA: Not Applicable Referrals: PCP,None [Primary Care Provider] - Additional Instructions: Follow up in clinic Sepsis Event Note - Evaluation Sepsis Screening Result: No Definite Risk - Focused Exam Vital Signs: Vital Signs Temp Pulse Resp BP Pulse Ox 06/11/19 10:45 57 L 20 116/52 L 95 06/11/19 10:30 97.9 F 56 L 20 122/50 L 94 L Date Exam was Performed: 06/11/19 Time Exam was Performed: 12:06 - My Orders Last 24 Hours: My Active Orders 06/11/19 10:22 Heparin Sodium [Heparin Lock Flush 100 Units/ML] 300 units FLUSH ASDIRECTED PRN 06/11/19 10:45 Central Line Assessment [RC] Q12H 06/11/19 10:59 Sodium Chloride 0.9% [Saline Flush] 10 ml FLUSH ASDIRECTED PRN 06/11/19 11:00 Communication Order [RC] DAILY - Assessment/Plan Last 24 Hours: My Active Orders 06/11/19 10:22 Heparin Sodium [Heparin Lock Flush 100 Units/ML] 300 units FLUSH ASDIRECTED PRN 06/11/19 10:45 Central Line Assessment [RC] Q12H 06/11/19 10:59 Sodium Chloride 0.9% [Saline Flush] 10 ml FLUSH ASDIRECTED PRN 06/11/19 11:00 Communication Order [RC] DAILY
== END 2019-06-11 13:45 ==
LOC: LL.ED 10:20
DX: R41.0 Disorientation, unspecified (principal); E78.00 Pure hypercholesterolemia, unspecified; J44.9 Chronic obstructive pulmonary disease, unspecified; I12.9 Hypertensive chronic kidney disease with stage 1 through stage 4 chronic kidney disease, or unspecified chronic kidney disease; N18.9 Chronic kidney disease, unspecified; F41.9 Anxiety disorder, unspecified; F32.9 Major depressive disorder, single episode, unspecified; E66.9 Obesity, unspecified; Z68.27 Body mass index [BMI] 27.0-27.9, adult; Z79.899 Other long term (current) drug therapy
CPT/HCPCS: 36415; 36569; 80053; 83605; 85025; 99282; 99285; J1642

== ENCOUNTER 2019-06-13 12:40 | Emergency (ER) | payer MEDICARE, BC ==
--- NOTE | 2019-06-13 13:57 | EDM.PDOC ---
ED HPI GENERAL MEDICAL PROBLEM - General Chief Complaint: General Stated Complaint: weakness Time Seen by Provider: 06/13/19 12:56 Source of Information: Reports: Patient, Provider, Other ([facility]) History Limitations: Reports: Other (Poor with history) - History of Present Illness INITIAL COMMENTS - FREE TEXT/NARRATIVE: Patient sent here from [facility] to be evaluated and have lactic acid and ammonia level performed. Staff concerned that he has been sitting around in bed more/complaining of weakness. Some worry of confusion. Has been in and out of hospitals this past month several times. Diagnosed with Influenza B on May 23. Seen on and admitted, ultimately found to have + blood cultures and sepsis. Transferred to [place] for further treatment. Seen again here several days ago for lethargy and was able to return to [place] after evaluation. Had labs done today by primary provider but was sent to [facility] to get rechecked and have Lactic Acid and Ammonia level tested to make certain they were not contributing to ongoing issues of continued complaints of fatigue. No other changes reported to us by staff. Patient is uncertain why he was sent to ER. When asked how his is doing he has no acute complaints other than fatigue. Denies other acute changes. Says he is eating and drinking well. There was some concern prior to transfer that he may have had possible DE/ stroke but he says he was told by his [place] MD that he did not "have those". - Related Data Allergies Allergy/AdvReac Type Severity Reaction Status Date / Time No Known Allergies Allergy Verified 06/13/19 12:49 Home Meds: Home Meds Folic Acid 1 mg PO DAILY 05/29/19 [History] Polyvinyl Alcohol [Artificial Tears] 2 drop EYEBOTH ASDIRECTED PRN 05/29/19 [ History] Venlafaxine HCl [Venlafaxine ER] 75 mg PO DAILY 05/29/19 [History] allopurinoL [Zyloprim] 100 mg PO DAILY 05/29/19 [History] atorvaSTATin [Lipitor] 10 mg PO DAILY 05/29/19 [History] carvediloL [Carvedilol] 50 mg PO BID 05/29/19 [History] predniSONE [Prednisone] 5 mg PO DAILY 05/29/19 [History] Cyanocobalamin (Vitamin B-12) [Vitamin B-12] 1 tab PO DAILY 06/11/19 [History] Heparin Sodium [Heparin Lock Flush 100 Units/ML] 300 unit FLUSH DAILY 06/11/19 [ History] Losartan Potassium 100 mg PO BEDTIME 06/11/19 [History] Nystatin [Nystatin Crm] 15 gm TOP BID 06/11/19 [History] QUEtiapine Fumarate [Quetiapine Fumarate] 0.5 tab PO BEDTIME 06/11/19 [History] cefTRIAXone Sodium [Ceftriaxone] 2 gm IV DAILY 06/11/19 [History] hydroCHLOROthiazide [Hydrochlorothiazide] 25 mg PO DAILY 06/11/19 [History] Magnesium Oxide 400 mg PO BID #60 tab 06/13/19 [Rx] Sodium Chloride 0.9% [Saline Flush] 10 ml IV DAILY 06/13/19 [History] Past Medical History HEENT History: Reports: Allergic Rhinitis, Hard of Hearing, Impaired Vision, Macular Degeneration, Other (See Below) Other HEENT History: Bilateral presbycusis. Patient does wear glasses. 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 Cardiovascular History: Reports: Arrhythmia, High Cholesterol, Hypertension, Other (See Below) Other Cardiovascular History: Grade 1 diastolic dysfunction. First degree AV block. Respiratory History: Reports: Bronchitis, Recurrent, COPD, Intubation, Previous , Other (See Below) Other Respiratory History: COPD by chest x-ray with no current medical therapy. 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 Genitourinary History: Reports: BPH, Chronic Renal Insuffiency, Other (See Below ) Other Genitourinary History: Stable right renal complex cyst and bilateral renal cysts by evaluations as below. 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 Stage IV chronic renal insufficiency. Musculoskeletal History: Reports: Arthritis, Back Pain, Chronic, Fracture, Gout , Neck Pain, Chronic, Osteoarthritis, Other (See Below) Other Musculoskeletal History: Right coracoid process hairline fracture extending to the scapula on 05/13/18. Neurological History: Reports: Other (See Below) Other Neuro History: No history of alcohol-induced seizures. Cerebral microvascular disease and cerebral atrophy by CT scan. Psychiatric History: Reports: Addiction, Anxiety, Depression, Psychosis, Other ( See Below) Other Psychiatric History: History of alcohol abuse with secondary DTs. Endocrine/Metabolic History: Reports: Obesity/BMI 30+ Hematologic History: Reports: B12 Deficiency Immunologic History: Reports: None Oncologic (Cancer) History: Reports: None Dermatologic History: Reports: Eczema - Infectious Disease History Infectious Disease History: Reports: Chicken Pox, Other (See Below) Other Infectious Disease History: uncertain of childhood diseases. Sepsis of unknown source. - Past Surgical History Head Surgeries/Procedures: Reports: None HEENT Surgical History: Reports: Oral Surgery, Other (See Below) Other HEENT Surgeries/Procedures: Multiple teeth extractions with complete upper dentures. Cardiovascular Surgical History: Reports: None Respiratory Surgical History: Reports: None GI Surgical History: Reports: None Male Surgical History: Reports: Circumcision, Other (See Below) Other Male Surgeries/Procedures: Circumcision at age 1. Endocrine Surgical History: Reports: None Neurological Surgical History: Reports: None Musculoskeletal Surgical History: Reports: Joint Replacement, Shoulder Surgery, Other (See Below) Other Musculoskeletal Surgeries/Procedures:: Right shoulder reverse total arthroplasty on 05/13/18. Right total knee arthroplasty on 07/23/15. A left total knee arthroplasty on 08/15/17. Oncologic Surgical History: Reports: None Dermatological Surgical History: Reports: None - Past Imaging History Past Imaging History: Reports: Cardiac Echo (Echocardiogram on 12/01/17 with ejection fraction of 6065 percent otherwise with findings as above.), CAT Scan (CT of the head on 05/24/19 and 03/04/10. CT of the right shoulder on 07/24/18. CT of the abdomen and pelvis on 10/29/08 and 04/15/08.), MRI (Stephanie of the right foot on 12/03/17.) - History Comment History Comment: History from medical records and patient's Social & Family History - Family History HEENT: Reports: None Cardiac: Reports: None Respiratory: Reports: None GI: Reports: Colon Polyps, Other (See Below) Other GI Family History: Mother with history of colonic polyps in her 60s. OBGYN: Reports: None Musculoskeletal: Reports: None Neurological: Reports: Alzheimers Disease, CVA, Dementia, Other (See Below) Other Neurological Family History: Mother with organic brain syndrome. Sister with CVA at about age 70. Psychiatric: Reports: Anxiety, Depression, Other (See Below) Other Psychiatric Family History: Mother with anxiety depression disorder. Endocrine/Metabolic: Reports: None Hematologic: Reports: None Immunologic: Reports: None Dermatologic: Reports: Eczema, Other (See Below) Other Dermatologic Family History: Sister with eczema. Oncologic: Reports: Hodgkin's Lymphoma, Other (See Below) Other Oncologic Family History: Father with fatal Hodgkin's disease at age 43. 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 Denies: Fever, Chills, Malaise, Weakness, Night Sweats, Diaphoresis, Decreased Appetite, Weight Loss, Weight Gain HEENT: Denies: Ear Pain, Eye Discharge, Rhinitis, Sinus Problem, Throat Pain, Throat Swelling, Vertigo, Vision Change Respiratory: Reports: Other (mild dry cough/improving). Denies: Shortness of Breath, Wheezing, Pleuritic Chest Pain, Sputum, Hemoptysis Cardiovascular: Reports: No Symptoms. Denies: Chest Pain, Dyspnea on Exertion, Lightheadedness, Orthopnea, Palpitations, Syncope GI/Abdominal: Reports: No Symptoms : Reports: No Symptoms Musculoskeletal: Reports: Other (no acute changes/new pain) Skin: Denies: Erythema, Wound, Change in Color, Lesions Neurological: Reports: Confusion (per [facility] staff), Weakness (global). Denies: Dizziness, Headache, Numbness, Paresthesia, Seizure, Syncope, Tingling, Trouble Speaking, Change in Speech Psychiatric: Reports: No Symptoms Hematologic/Lymphatic: Reports: No Symptoms ED EXAM, GENERAL - Physical Exam Exam: See Below Exam Limited By: No Limitations General Appearance: Alert, WD/WN, No Apparent Distress Eye Exam: Bilateral Eye: EOMI, PERRL Ears: Normal External Exam, Hearing Grossly Normal Nose: No: Nasal Deformity, Nasal Swelling, Nasal Drainage Throat/Mouth: Normal Lips, Normal Voice, No Airway Compromise Neck: Supple, Non-Tender, Full Range of Motion Respiratory/Chest: No Respiratory Distress, Lungs Clear, Normal Breath Sounds, No Accessory Muscle Use, Chest Non-Tender Cardiovascular: Normal Peripheral Pulses, Regular Rate, Rhythm, No Murmur GI/Abdominal: Normal Bowel Sounds, Soft, Non-Tender, No Distention (Male) Exam: Deferred Rectal (Males) Exam: Deferred Back Exam: No: CVA Tenderness (L), CVA Tenderness (R), Muscle Spasm, Paraspinal Tenderness, Vertebral Tenderness Extremities: Normal Range of Motion (equal tone/strength bilaterally), Non- Tender, Pedal Edema (mild, bilateral). No: Calvin's Sign, Leg Pain, Increased Warmth, Mottled, Pallor, Redness Neurological: Alert, Oriented, Normal Cognition Psychiatric: Normal Affect, Normal Mood Skin Exam: Warm, Intact, Normal Color Course - Vital Signs Last Recorded V/S: Last Vital Signs Temp 35.9 C L 06/13/19 12:41 Pulse 59 L 06/13/19 12:41 Resp 18 06/13/19 12:41 BP 139/66 06/13/19 12:41 Pulse Ox 100 06/13/19 12:41 - Orders/Labs/Meds Orders: Active Orders 24 hr Category Date Time Status CULTURE BLOOD [BC] Stat Lab 06/13/19 14:30 Received Heparin Sodium [Heparin Lock Flush 100 Units/ML] Med 06/13/19 16:25 Active 500 units FLUSH ASDIRECTED PRN Sodium Chloride 0.9% [Saline Flush] Med 06/13/19 14:03 Active 10 ml FLUSH ASDIRECTED PRN Blood Culture x2 Reflex Set [OM.PC] Stat Oth 06/13/19 14:18 Ordered Saline Lock Insert [OM.PC] Routine Oth 06/13/19 14:03 Ordered Medication Orders Heparin Sodium (Porcine) (Heparin Lock Flush 100 Units/Ml) 500 units FLUSH ASDIRECTED PRN PRN Reason: Keep Vein Open Last Admin: 06/13/19 16:34 Dose: 500 units Sodium Chloride (Saline Flush) 10 ml FLUSH ASDIRECTED PRN PRN Reason: Keep Vein Open Last Admin: 06/13/19 16:35 Dose: 10 ml Admin: 06/13/19 14:26 Dose: 10 ml Labs: Laboratory Tests 06/13/19 06/13/19 06/13/19 Range/Units 13:06 13:06 13:06 Lactic Acid 1.1 (0.4-2.0) mmol/L Magnesium 1.0 L (1.8-2.4) mg/dL Ammonia 18 (11-32) umol/L Specimen Type Urine Color Urine Appearance Urine pH (5.0-9.0) Ur Specific Cook Sta (1.005-1.030) Urine Protein (NEGATIVE) mg/dL Urine Glucose (UA) (NEGATIVE) mg/dL Urine Ketones (NEGATIVE) mg/dL Urine Occult Blood (NEGATIVE) Urine Nitrite (NEGATIVE) Urine Bilirubin (NEGATIVE) Urine Urobilinogen (0.2-1.0) E.U./dL Ur Leukocyte Esterase (NEGATIVE) Urine RBC /HPF Urine WBC /HPF Ur Epithelial Cells /LPF Urine Bacteria (NONE TO FEW) /HPF 06/13/19 Range/Units 13:50 Lactic Acid (0.4-2.0) mmol/L Magnesium (1.8-2.4) mg/dL Ammonia (11-32) umol/L Specimen Type Urinblad Urine Color Yellow Urine Appearance Clear Urine pH 5.5 (5.0-9.0) Ur Specific Cook Sta 1.020 (1.005-1.030) Urine Protein 100 H (NEGATIVE) mg/dL Urine Glucose (UA) Negative (NEGATIVE) mg/dL Urine Ketones Negative (NEGATIVE) mg/dL Urine Occult Blood Small H (NEGATIVE) Urine Nitrite Negative (NEGATIVE) Urine Bilirubin Negative (NEGATIVE) Urine Urobilinogen 0.2 (0.2-1.0) E.U./dL Ur Leukocyte Esterase Negative (NEGATIVE) Urine RBC 0-5 /HPF Urine WBC 5-10 H /HPF Ur Epithelial Cells Moderate H /LPF Urine Bacteria Moderate H (NONE TO FEW) /HPF Meds: Medications Generic Name Dose Route Start Last Admin Trade Name Freq PRN Reason Stop Dose Admin Heparin Sodium (Porcine) 500 units 06/13/19 16:25 06/13/19 16:34 Heparin Lock Flush 100 Units/Ml FLUSH 500 units ASDIRECTED PRN Administration Keep Vein Open Sodium Chloride 10 ml 06/13/19 14:03 06/13/19 16:35 Saline Flush FLUSH 10 ml ASDIRECTED PRN Administration Keep Vein Open Discontinued Medications Generic Name Dose Route Start Last Admin Trade Name Anh PRN Reason Stop Dose Admin Magnesium Sulfate/Dextrose 1 100 mls @ 100 mls/hr 06/13/19 14:03 06/13/19 14: 19 gm/ Premix IV 06/13/19 15:02 100 mls/hr ONETIME ONE Administration Magnesium Sulfate/Dextrose 1 100 mls @ 100 mls/hr 06/13/19 15:04 06/13/19 15: 22 gm/ Premix IV 06/13/19 16:03 100 mls/hr ONETIME ONE Administration - Re-Assessments/Exams Free Text/Narrative Re-Assessment/Exam: 06/13/19 14:20 Lactic acid and ammonia levels normal. WBC from previous labs drawn today just above normal level, but patient is on prednisone and this could be contributing to elevation. AGain, no signs of fevers/other signs acute infection reported. Will obtain new blood culture to make certain infection has completely cleared. Mag level noted to be severely low when patient had this checked earlier this month. It does not appear to have yet been addressed in care plan. Mag deficiency has been associated with weakness and fatigue and loss of appetite. Plan at this time is to give supplemental IV Mag x2 doses. They are to observe for response/other acute changes and he should get his Mag level rechecked Sunday by primary provider. To start supplemental Mag orally. Close follow up with primary provider essential to make certain that levels are normalized and maintained in normal range. Departure - Departure Time of Disposition: 16:38 Disposition: DC/Tfer to [facility] 03 Condition: Good Clinical Impression: Hypomagnesemia Fatigue Qualifiers: Fatigue type: unspecified Qualified Code(s): R53.83 - Other fatigue - Discharge Information *PRESCRIPTION DRUG MONITORING PROGRAM REVIEWED*: Not Applicable *COPY OF PRESCRIPTION DRUG MONITORING REPORT IN PATIENT NUVIA: Not Applicable Prescriptions: Magnesium Oxide 400 mg PO BID #60 tab Referrals: Nalini Ornelas NP [Primary Care Provider] - Forms: ED Department Discharge Additional Instructions: Recheck Mag/Chem 7 Sunday. Continue to check Mag levels and adjust PO supplementation as needed in order to obtain normal blood magnesium level. Close follow up with primary provider. See if fatigue improves over weekend after receiving IV Mag. Follow up otherwise as needed. Sepsis Event Note - Evaluation Sepsis Screening Result: No Definite Risk - Focused Exam Vital Signs: Vital Signs Temp Pulse Resp BP Pulse Ox 06/13/19 12:41 35.9 C L 59 L 18 139/66 100 Date Exam was Performed: 06/13/19 Time Exam was Performed: 16:37 - My Orders Last 24 Hours: My Active Orders 06/13/19 14:03 Sodium Chloride 0.9% [Saline Flush] 10 ml FLUSH ASDIRECTED PRN Saline Lock Insert [OM.PC] Routine 06/13/19 14:18 Blood Culture x2 Reflex Set [OM.PC] Stat 06/13/19 14:30 CULTURE BLOOD [BC] Stat 06/13/19 16:25 Heparin Sodium [Heparin Lock Flush 100 Units/ML] 500 units FLUSH ASDIRECTED PRN - Assessment/Plan Last 24 Hours: My Active Orders 06/13/19 14:03 Sodium Chloride 0.9% [Saline Flush] 10 ml FLUSH ASDIRECTED PRN Saline Lock Insert [OM.PC] Routine 06/13/19 14:18 Blood Culture x2 Reflex Set [OM.PC] Stat 06/13/19 14:30 CULTURE BLOOD [BC] Stat 06/13/19 16:25 Heparin Sodium [Heparin Lock Flush 100 Units/ML] 500 units FLUSH ASDIRECTED PRN
[2019-06-13] MEDS: Sodium Chloride 0.9% 10 ML Syringe FLUSH PRN ×2 (14:26→16:35)
== END 2019-06-13 17:00 ==
LOC: LL.ED 12:40
DX: E83.42 Hypomagnesemia (principal); R53.83 Other fatigue; J44.9 Chronic obstructive pulmonary disease, unspecified; E66.9 Obesity, unspecified; Z68.26 Body mass index [BMI] 26.0-26.9, adult; Z79.899 Other long term (current) drug therapy
CPT/HCPCS: 36415; 81001; 82140; 83605; 83735; 87040; 96365; 96366; 99285; J1642; J3475

== ENCOUNTER 2019-12-22 16:21 | Emergency (ER) | payer MEDICARE, BC ==
[2019-12-22] MEDS ORDERED: hydrALAZINE 20 MG/ML SDV IVPUSH ONE ×2 (16:50→18:06)
[2019-12-22 16:58] LABS: CHLORIDE,CL 101 mmol/L (98-107); SODIUM,NA 134 mmol/L (136-145)
[2019-12-22] MEDS ORDERED: Sodium Chloride 0.9% 10 ML Syringe FLUSH PRN (17:18)
[2019-12-22] MEDS ORDERED: Sodium Chloride 0.9% 1,000 ML IV SCH (18:15)
--- NOTE | 2019-12-22 18:17 | EDM.PDOC ---
ED HPI GENERAL MEDICAL PROBLEM - General Chief Complaint: General Stated Complaint: confusion Time Seen by Provider: 12/22/19 16:23 Source of Information: Reports: Family History Limitations: Reports: Altered Mental Status - History of Present Illness INITIAL COMMENTS - FREE TEXT/NARRATIVE: Pt brought to ER after being seen in clinic Pt very confused today and getting worse Unknown time of onset states he was normal last night and confused today since waking No SOB No fever No chest pain No N/V/D Symptoms similar to 06/05 when had same Onset: Today, Gradual Duration: Hour(s):, Getting Worse Location: Reports: Generalized - Related Data Allergies Allergy/AdvReac Type Severity Reaction Status Date / Time No Known Allergies Allergy Verified 06/13/19 12:49 Home Meds: Home Meds Folic Acid 1 mg PO DAILY 05/29/19 [History] Venlafaxine HCl [Venlafaxine ER] 75 mg PO DAILY 05/29/19 [History] allopurinoL [Zyloprim] 100 mg PO DAILY 05/29/19 [History] atorvaSTATin [Lipitor] 10 mg PO DAILY 05/29/19 [History] carvediloL [Carvedilol] 50 mg PO BID 05/29/19 [History] predniSONE [Prednisone] 5 mg PO DAILY 05/29/19 [History] Cyanocobalamin (Vitamin B-12) [Vitamin B-12] 1 tab PO DAILY 06/11/19 [History] QUEtiapine Fumarate [Quetiapine Fumarate] 0.5 tab PO BEDTIME 06/11/19 [History] Aspirin [Halfprin] 81 mg PO BEDTIME 12/22/19 [History] Ferrous Sulfate [Slow Fe] 1 tab PO DAILY 12/22/19 [History] Magnesium Oxide 400 mg PO TID 12/22/19 [History] Thiamine HCl [Vitamin B-1] 100 mg PO DAILY 12/22/19 [History] Past Medical History HEENT History: Reports: Allergic Rhinitis, Hard of Hearing, Impaired Vision, Macular Degeneration, Other (See Below) Other HEENT History: Bilateral presbycusis. Patient does wear glasses. 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 Cardiovascular History: Reports: Arrhythmia, High Cholesterol, Hypertension, Other (See Below) Other Cardiovascular History: Grade 1 diastolic dysfunction. First degree AV block. Respiratory History: Reports: Bronchitis, Recurrent, COPD, Intubation, Previous, Other (See Below) Other Respiratory History: COPD by chest x-ray with no current medical therapy. 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 Genitourinary History: Reports: BPH, Chronic Renal Insuffiency, Other (See Below) Other Genitourinary History: Stable right renal complex cyst and bilateral renal cysts by evaluations as below. 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 Stage IV chronic renal insufficiency. Musculoskeletal History: Reports: Arthritis, Back Pain, Chronic, Fracture, Gout, Neck Pain, Chronic, Osteoarthritis, Other (See Below) Other Musculoskeletal History: Right coracoid process hairline fracture extending to the scapula on 05/13/18. Neurological History: Reports: Other (See Below) Other Neuro History: No history of alcohol-induced seizures. Cerebral microvascular disease and cerebral atrophy by CT scan. Psychiatric History: Reports: Addiction, Anxiety, Depression, Psychosis, Other (See Below) Other Psychiatric History: History of alcohol abuse with secondary DTs. Endocrine/Metabolic History: Reports: Obesity/BMI 30+ Hematologic History: Reports: B12 Deficiency Immunologic History: Reports: None Oncologic (Cancer) History: Reports: None Dermatologic History: Reports: Eczema - Infectious Disease History Infectious Disease History: Reports: Chicken Pox, Other (See Below) Other Infectious Disease History: uncertain of childhood diseases. Sepsis of unknown source. - Past Surgical History Head Surgeries/Procedures: Reports: None HEENT Surgical History: Reports: Oral Surgery, Other (See Below) Other HEENT Surgeries/Procedures: Multiple teeth extractions with complete upper dentures. Cardiovascular Surgical History: Reports: None Respiratory Surgical History: Reports: None GI Surgical History: Reports: None Male Surgical History: Reports: Circumcision, Other (See Below) Other Male Surgeries/Procedures: Circumcision at age 1. Endocrine Surgical History: Reports: None Neurological Surgical History: Reports: None Musculoskeletal Surgical History: Reports: Joint Replacement, Shoulder Surgery, Other (See Below) Other Musculoskeletal Surgeries/Procedures:: Right shoulder reverse total arthroplasty on 05/13/18. Right total knee arthroplasty on 07/23/15. A left total knee arthroplasty on 08/15/17. Oncologic Surgical History: Reports: None Dermatological Surgical History: Reports: None - Past Imaging History Past Imaging History: Reports: Cardiac Echo (Echocardiogram on 12/01/17 with ejection fraction of 6065 percent otherwise with findings as above.), CAT Scan (CT of the head on 05/24/19 and 03/04/10. CT of the right shoulder on 07/24/18. CT of the abdomen and pelvis on 10/29/08 and 04/15/08.), MRI (Stephanie of the right foot on 12/03/17.) - History Comment History Comment: History from medical records and patient's Social & Family History - Family History HEENT: Reports: None Cardiac: Reports: None Respiratory: Reports: None GI: Reports: Colon Polyps, Other (See Below) Other GI Family History: Mother with history of colonic polyps in her 60s. OBGYN: Reports: None Musculoskeletal: Reports: None Neurological: Reports: Alzheimers Disease, CVA, Dementia, Other (See Below) Other Neurological Family History: Mother with organic brain syndrome. Sister with CVA at about age 70. Psychiatric: Reports: Anxiety, Depression, Other (See Below) Other Psychiatric Family History: Mother with anxiety depression disorder. Endocrine/Metabolic: Reports: None Hematologic: Reports: None Immunologic: Reports: None Dermatologic: Reports: Eczema, Other (See Below) Other Dermatologic Family History: Sister with eczema. Oncologic: Reports: Hodgkin's Lymphoma, Other (See Below) Other Oncologic Family History: Father with fatal Hodgkin's disease at age 43. 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.) ED ROS GENERAL - Review of Systems Review Of Systems: See Below Constitutional: Reports: No Symptoms HEENT: Reports: No Symptoms Respiratory: Reports: No Symptoms Cardiovascular: Reports: No Symptoms GI/Abdominal: Reports: No Symptoms Musculoskeletal: Reports: Neck Pain Neurological: Reports: Confusion Psychiatric: Reports: Confusion ED EXAM, GENERAL - Physical Exam Exam: See Below Exam Limited By: Altered Mental Status General Appearance: WD/WN, No Apparent Distress Eye Exam: Bilateral Eye: EOMI, PERRL Ears: Normal TMs Nose: Normal Inspection Throat/Mouth: Normal Oropharynx Head: Atraumatic Neck: Supple, Other (Mildly tender on left No swelling No ecchymosis No erythema) Cardiovascular: Regular Rate, Rhythm GI/Abdominal: Soft, Non-Tender Extremities: No Pedal Edema Neurological: Confused Psychiatric: Flat Affect Course - Vital Signs Last Recorded V/S: Last Vital Signs Temp 98 F 12/22/19 16:22 Pulse 62 12/22/19 18:06 Resp 20 12/22/19 18:06 BP 177/81 H 12/22/19 18:06 Pulse Ox 99 12/22/19 18:06 - Orders/Labs/Meds Orders: Active Orders 24 hr Category Date Time Status EKG Documentation Completion [RC] ASDIRECTED Care 12/22/19 16:24 Active Cervical Spine wo Cont [CT] Stat Exams 12/22/19 16:25 Taken Head wo Cont [CT] Stat Exams 12/22/19 16:25 Taken Sodium Chloride 0.9% @ 100 MLS/HR(1,000ml) Med 12/22/19 18:15 Ordered Sodium Chloride 0.9% [Normal Saline] 1,000 ml IV ASDIRECTED Sodium Chloride 0.9% [Saline Flush] Med 12/22/19 17:18 Active 10 ml FLUSH ASDIRECTED PRN Isolation [COMM] Routine Oth 12/22/19 17:07 Active Saline Lock Insert [OM.PC] Routine Oth 12/22/19 17:18 Ordered Medication Orders Sodium Chloride (Normal Saline) 1,000 mls @ 100 mls/hr IV ASDIRECTED CONRADO Sodium Chloride (Saline Flush) 10 ml FLUSH ASDIRECTED PRN PRN Reason: Keep Vein Open Last Admin: 12/22/19 17:24 Dose: 10 ml Documented by: SHEMAR Labs: Laboratory Tests 12/22/19 12/22/19 12/22/19 Range/Units 16:25 16:25 16:25 WBC 12.2 H (4.0-10.2) K/uL RBC 4.71 (4.33-5.41) M/uL Hgb 14.0 D (13.1-16.8) g/dL Hct 42.3 (39.0-49.0) % MCV 89.8 D (84.0-98.0) fL MCH 29.7 (28.2-33.3) pg MCHC 33.1 (31.7-36.0) g/dL RDW 14.8 H (11.2-14.1) % Plt Count 270 D (150-350) K/uL Neut % (Auto) 75.0 (45.0-80.0) % Lymph % (Auto) 15.7 (10.0-50.0) % Love % (Auto) 7.6 (2.0-14.0) % Eos % (Auto) 1.5 (0.0-5.0) % Baso % (Auto) 0.2 (0.0-2.0) % Neut # (Auto) 9.15 H (1.40-7.00) K/uL Lymph # (Auto) 1.92 (0.50-3.50) K/uL Love # (Auto) 0.93 (0.00-1.00) K/uL Eos # (Auto) 0.18 (0.00-0.50) K/uL Baso # (Auto) 0.03 (0.00-0.20) K/uL APTT 25.2 (24.5-32.8) SEC Sodium 134 L (136-145) mmol/L Potassium 5.7 H* (3.5-5.1) mmol/L Chloride 101 (98-107) mmol/L Carbon Dioxide 23.2 (21.0-32.0) mmol/L BUN 38 H (7-18) mg/dL Creatinine 3.44 H* (0.51-1.17) mg/dL Est Cr Clr Drug Dosing TNP Estimated GFR (MDRD) 17 mL/min Glucose 105 (74-106) mg/dL Calcium 9.3 (8.5-10.1) mg/dL Total Bilirubin 0.5 (0.2-1.0) mg/dL AST 28 (15-37) U/L ALT 43 (12-78) U/L Alkaline Phosphatase 160 H (46-116) IU/L Troponin I 0.000 (0.000-0.056) ng/mL Total Protein 7.9 (6.4-8.2) g/dL Albumin 3.0 L (3.4-5.0) g/dL Specimen Type Urine Color Urine Appearance Urine pH (5.0-9.0) Ur Specific Merlin (1.005-1.030) Urine Protein (NEGATIVE) mg/dL Urine Glucose (UA) (NEGATIVE) mg/dL Urine Ketones (NEGATIVE) mg/dL Urine Occult Blood (NEGATIVE) Urine Nitrite (NEGATIVE) Urine Bilirubin (NEGATIVE) Urine Urobilinogen (0.2-1.0) E.U./dL Ur Leukocyte Esterase (NEGATIVE) Urine RBC /HPF Urine WBC /HPF Urine Bacteria (NONE TO FEW) /HPF 12/22/19 Range/Units 16:40 WBC (4.0-10.2) K/uL RBC (4.33-5.41) M/uL Hgb (13.1-16.8) g/dL Hct (39.0-49.0) % MCV (84.0-98.0) fL MCH (28.2-33.3) pg MCHC (31.7-36.0) g/dL RDW (11.2-14.1) % Plt Count (150-350) K/uL Neut % (Auto) (45.0-80.0) % Lymph % (Auto) (10.0-50.0) % Love % (Auto) (2.0-14.0) % Eos % (Auto) (0.0-5.0) % Baso % (Auto) (0.0-2.0) % Neut # (Auto) (1.40-7.00) K/uL Lymph # (Auto) (0.50-3.50) K/uL Love # (Auto) (0.00-1.00) K/uL Eos # (Auto) (0.00-0.50) K/uL Baso # (Auto) (0.00-0.20) K/uL APTT (24.5-32.8) SEC Sodium (136-145) mmol/L Potassium (3.5-5.1) mmol/L Chloride (98-107) mmol/L Carbon Dioxide (21.0-32.0) mmol/L BUN (7-18) mg/dL Creatinine (0.51-1.17) mg/dL Est Cr Clr Drug Dosing Estimated GFR (MDRD) mL/min Glucose (74-106) mg/dL Calcium (8.5-10.1) mg/dL Total Bilirubin (0.2-1.0) mg/dL AST (15-37) U/L ALT (12-78) U/L Alkaline Phosphatase (46-116) IU/L Troponin I (0.000-0.056) ng/mL Total Protein (6.4-8.2) g/dL Albumin (3.4-5.0) g/dL Specimen Type Urincc Urine Color Yellow Urine Appearance Clear Urine pH 8.5 (5.0-9.0) Ur Specific Merlin 1.020 (1.005-1.030) Urine Protein >=300 H (NEGATIVE) mg/dL Urine Glucose (UA) Negative (NEGATIVE) mg/dL Urine Ketones Negative (NEGATIVE) mg/dL Urine Occult Blood Trace-lysed H (NEGATIVE) Urine Nitrite Negative (NEGATIVE) Urine Bilirubin Negative (NEGATIVE) Urine Urobilinogen 0.2 (0.2-1.0) E.U./dL Ur Leukocyte Esterase Negative (NEGATIVE) Urine RBC 0-5 /HPF Urine WBC Not seen /HPF Urine Bacteria Not seen (NONE TO FEW) /HPF Meds: Medications Generic Name Dose Route Start Last Admin Trade Name Freq PRN Reason Stop Dose Admin Sodium Chloride 1,000 mls @ 100 mls/hr 12/22/19 18:15 Normal Saline IV ASDIRECTED CONRADO Sodium Chloride 10 ml 12/22/19 17:18 12/22/19 17:24 Saline Flush FLUSH 10 ml ASDIRECTED PRN Administration Keep Vein Open Discontinued Medications Generic Name Dose Route Start Last Admin Trade Name Freq PRN Reason Stop Dose Admin Hydralazine HCl 5 mg 12/22/19 16:50 12/22/19 17:18 Apresoline IVPUSH 12/22/19 16:51 5 mg ONETIME ONE Administration Hydralazine HCl 5 mg 12/22/19 18:06 Apresoline IVPUSH 12/22/19 18:07 ONETIME ONE - Re-Assessments/Exams Free Text/Narrative Re-Assessment/Exam: 12/22/19 18:[address] negative Influenza B positive Pt given Apresoline 5 mg IV X 2 D/W Dr [facility] Will accept in transfer Transfer via ambulance Departure - Departure Time of Disposition: 18:20 Disposition: DC/Tfer to [facility] 02 Clinical Impression: Confusion and disorientation, Acute hyperkalemia, Influenza B, MAGNO (acute kidney injury) - Discharge Information *PRESCRIPTION DRUG MONITORING PROGRAM REVIEWED*: Not Applicable *COPY OF PRESCRIPTION DRUG MONITORING REPORT IN PATIENT NUVIA: Not Applicable Referrals: Nhan Hernandez PA [Primary Care Provider] - Sepsis Event Note (ED) - Evaluation Sepsis Screening Result: No Definite Risk - Focused Exam Vital Signs: Vital Signs Temp Pulse Resp BP Pulse Ox 12/22/19 18:00 61 17 184/93 H 97 12/22/19 17:45 62 20 177/81 H 99 12/22/19 17:25 64 16 178/91 H 99 12/22/19 17:15 65 16 182/92 H 97 12/22/19 17:00 67 18 186/94 H 98 12/22/19 16:42 68 16 206/92 H 98 12/22/19 16:22 98 F 74 22 H 195/112 H 100 - My Orders Last 24 Hours: My Active Orders 12/22/19 16:24 EKG Documentation Completion [RC] ASDIRECTED 12/22/19 16:25 Cervical Spine wo Cont [CT] Stat Head wo Cont [CT] Stat 12/22/19 17:07 Isolation [COMM] Routine 12/22/19 17:18 Sodium Chloride 0.9% [Saline Flush] 10 ml FLUSH ASDIRECTED PRN Saline Lock Insert [OM.PC] Routine 12/22/19 18:15 Sodium Chloride 0.9% @ 100 MLS/HR(1,000ml) Sodium Chloride 0.9% [Normal Saline] 1,000 ml IV ASDIRECTED - Assessment/Plan Last 24 Hours: My Active Orders 12/22/19 16:24 EKG Documentation Completion [RC] ASDIRECTED 12/22/19 16:25 Cervical Spine wo Cont [CT] Stat Head wo Cont [CT] Stat 12/22/19 17:07 Isolation [COMM] Routine 12/22/19 17:18 Sodium Chloride 0.9% [Saline Flush] 10 ml FLUSH ASDIRECTED PRN Saline Lock Insert [OM.PC] Routine 12/22/19 18:15 Sodium Chloride 0.9% @ 100 MLS/HR(1,000ml) Sodium Chloride 0.9% [Normal Saline] 1,000 ml IV ASDIRECTED
== END 2019-12-22 18:45 ==
LOC: LL.ED 16:21
DX: R41.0 Disorientation, unspecified (principal); J10.1 Influenza due to other identified influenza virus with other respiratory manifestations; E87.5 Hyperkalemia; I12.9 Hypertensive chronic kidney disease with stage 1 through stage 4 chronic kidney disease, or unspecified chronic kidney disease; N18.4 Chronic kidney disease, stage 4 (severe); N17.9 Acute kidney failure, unspecified; E78.00 Pure hypercholesterolemia, unspecified; J44.9 Chronic obstructive pulmonary disease, unspecified; F41.9 Anxiety disorder, unspecified; F32.9 Major depressive disorder, single episode, unspecified; M10.9 Gout, unspecified; E66.9 Obesity, unspecified; Z79.899 Other long term (current) drug therapy; Z79.82 Long term (current) use of aspirin
CPT/HCPCS: 36415; 70450; 72125; 80053; 81001; 84484; 85025; 85730; 87804; 93005; 96361; 96374; 96376; 99284; 99285-25; J0360; J7030

== ENCOUNTER 2021-07-01 18:55 | Emergency (ER) | payer MEDICARE, BC ==
[2021-07-01] MEDS ORDERED: Ondansetron 4 MG/2 ML SDV ONE (19:57)
[2021-07-01 20:09] LABS: ANION GAP 12.9 meq/L (7-15)
[2021-07-01] MEDS ORDERED: Sodium Chloride 0.9% 10 ML Syringe FLUSH PRN (20:26)
[2021-07-01] MEDS ORDERED: Ondansetron 4 MG/2 ML SDV IVPUSH ONE (20:27)
[2021-07-01] MEDS ORDERED: Sodium Chloride 0.9% 1,000 ML IV ONE (20:50)
== END 2021-07-01 22:07 ==
LOC: LL.ED 18:55
DX: N17.9 Acute kidney failure, unspecified (principal); E78.00 Pure hypercholesterolemia, unspecified; I10 Essential (primary) hypertension; M19.90 Unspecified osteoarthritis, unspecified site; E66.9 Obesity, unspecified; Z68.28 Body mass index [BMI] 28.0-28.9, adult; Z86.73 Personal history of transient ischemic attack (TIA), and cerebral infarction without residual deficits; Z79.899 Other long term (current) drug therapy; W19.XXXA Unspecified fall, initial encounter
CPT/HCPCS: 36415; 51702; 70450; 71046; 80053; 81001; 83605; 83880; 85025; 96374; 99284; 99285-25; J2405; J7030

== ENCOUNTER 2021-10-04 02:28 | Emergency (ER) | payer MEDICARE, BC ==
[2021-10-04] MEDS ORDERED: Sodium Chloride 0.9% 10 ML Syringe FLUSH PRN ×2 (02:46→09:00)
[2021-10-04] MEDS ORDERED: Ondansetron 4 MG/2 ML SDV IVPUSH ONE (02:47)
[2021-10-04] MEDS ORDERED: Metoclopramide 10 MG/2 ML SDV IVPUSH ONE ×2 (02:59→03:02)
[2021-10-04] MEDS ORDERED: Sodium Chloride 0.9% 500 ML IV SCH ×2 (03:00→05:15)
[2021-10-04 03:37] LABS: RESPIRATORY SYNCYTIAL VIR NAA NEGATIVE (NEGATIVE)
[2021-10-04 03:38] LABS: CORONAVIRUS COVID-19 NAA POSITIVE (NEGATIVE)
[2021-10-04 03:39] LABS: ANION GAP 15.9 meq/L (7-15)
[2021-10-04] MEDS ORDERED: Sodium Chloride 0.9% 10 ML Syringe FLUSH SCH (09:00)
[2021-10-04] MEDS ORDERED: Famotidine 20 MG/2 ML SDV IVPUSH PRN (09:00)
[2021-10-04] MEDS ORDERED: methylPREDNISolone Sodium Succinate 125 MG/2 ML SDV IVPUSH PRN (09:00)
[2021-10-04] MEDS ORDERED: diphenhydrAMINE 50 MG/ML SDV IVPUSH PRN (09:00)
[2021-10-04] MEDS ORDERED: EPINEPHrine 1 MG/ML SDV IM PRN (09:00)
== END 2021-10-04 10:20 | disposition home or self-care (01) ==
LOC: LL.ED 02:28
DX: U07.1 COVID-19 (principal); J44.9 Chronic obstructive pulmonary disease, unspecified; E78.00 Pure hypercholesterolemia, unspecified; I12.9 Hypertensive chronic kidney disease with stage 1 through stage 4 chronic kidney disease, or unspecified chronic kidney disease; N18.9 Chronic kidney disease, unspecified; M10.9 Gout, unspecified; E66.9 Obesity, unspecified; Z68.25 Body mass index [BMI] 25.0-25.9, adult; Z79.899 Other long term (current) drug therapy; Z87.891 Personal history of nicotine dependence
CPT/HCPCS: 0241U; 36415; 74022; 80053; 82150; 83605; 83690; 83735; 83880; 85025; 96361; 96374; 96375; 99284-25; 99285; J2405; J2765; J3490; J7040; M0222; Q0222

== ENCOUNTER 2021-12-03 06:11 | Inpatient (IN) | payer MEDICARE, BC ==
[2021-12-03 06:54] LABS: CHLORIDE,CL 94 mmol/L (98-107); SODIUM,NA 132 mmol/L (136-145)
[2021-12-03 06:55] LABS: ANION GAP 15.9 meq/L (7-15); ESTIMATED GFR 7 mL/min (>=60)
[2021-12-03] MEDS ORDERED: VANCOmycin 1.5 GM/300 ML 1.5 GM in Premix Bag 1 BAG IV ONE (08:00)
[2021-12-03] MEDS ORDERED: Acetaminophen 325 MG Tab PO PRN (08:49)
[2021-12-03] MEDS ORDERED: Polyethylene Glycol 3350 Powder 17 GM Packet PO PRN (08:49)
[2021-12-03] MEDS ORDERED: Ondansetron 4 MG Tab.DIS PO PRN (08:49)
[2021-12-03] MEDS: Sodium Chloride 0.9% 10 ML Syringe FLUSH PRN ×3 (10:05→19:36)
[2021-12-03] MEDS: Venlafaxine 75 MG Cap.ER PO SCH (10:05)
[2021-12-03] MEDS: Magnesium Chloride 64 MG Tab.ER PO SCH (10:05)
[2021-12-03] MEDS: Heparin Sodium 5,000 Units/ML Vial SUBCUT SCH ×2 (10:05→17:38)
[2021-12-03] MEDS: prednisoLONE Acetate 1% Ophth Susp 5 ML Bottle EYERT SCH (17:38)
[2021-12-03] MEDS: Carvedilol 25 MG Tab PO SCH (17:38)
[2021-12-03] MEDS: QUEtiapine 25 MG Tab PO SCH (19:35)
[2021-12-04] MEDS: Heparin Sodium 5,000 Units/ML Vial SUBCUT SCH ×3 (00:24→17:21)
[2021-12-04 07:56] LABS: CHLORIDE,CL 91 mmol/L (98-107); SODIUM,NA 132 mmol/L (136-145)
[2021-12-04 08:01] LABS: ANION GAP 26.4 meq/L (7-15)
[2021-12-04 08:12] LABS: ESTIMATED GFR 5 mL/min (>=60)
[2021-12-04] MEDS: Venlafaxine 75 MG Cap.ER PO SCH (08:58)
[2021-12-04] MEDS: Carvedilol 25 MG Tab PO SCH ×2 (08:58→17:20)
[2021-12-04] MEDS: Magnesium Chloride 64 MG Tab.ER PO SCH (08:58)
[2021-12-04] MEDS: prednisoLONE Acetate 1% Ophth Susp 5 ML Bottle EYERT SCH ×2 (08:59→17:21)
[2021-12-04] MEDS: Allopurinol 100 MG Tab PO SCH (14:26)
[2021-12-04] MEDS: QUEtiapine 25 MG Tab PO SCH (19:21)
[2021-12-05] MEDS: Heparin Sodium 5,000 Units/ML Vial SUBCUT SCH ×3 (00:36→18:38)
[2021-12-05 07:42] LABS: CHLORIDE,CL 91 mmol/L (98-107); SODIUM,NA 131 mmol/L (136-145)
[2021-12-05 07:45] LABS: ANION GAP 25.5 meq/L (7-15)
[2021-12-05 07:46] LABS: ESTIMATED GFR 5 mL/min (>=60)
[2021-12-05] MEDS: prednisoLONE Acetate 1% Ophth Susp 5 ML Bottle EYERT SCH ×2 (08:09→18:38)
[2021-12-05] MEDS: Venlafaxine 75 MG Cap.ER PO SCH (08:09)
[2021-12-05] MEDS: Allopurinol 100 MG Tab PO SCH (08:09)
[2021-12-05] MEDS: Magnesium Chloride 64 MG Tab.ER PO SCH (08:09)
[2021-12-05] MEDS: Carvedilol 25 MG Tab PO SCH ×2 (08:10→18:40)
[2021-12-05] MEDS: Sodium Chloride 0.9% 10 ML Syringe FLUSH PRN (08:17)
[2021-12-05] MEDS ORDERED: Acetaminophen/HYDROcodone 325-5 MG Tab PO PRN (16:33)
[2021-12-05 16:58] LABS: RESPIRATORY SYNCYTIAL VIR NAA NEGATIVE (NEGATIVE)
[2021-12-05 17:00] LABS: CORONAVIRUS COVID-19 NAA POSITIVE (NEGATIVE)
[2021-12-05] MEDS: QUEtiapine 25 MG Tab PO SCH (20:45)
[2021-12-06] MEDS: Heparin Sodium 5,000 Units/ML Vial SUBCUT SCH ×2 (00:10→08:14)
[2021-12-06 07:43] LABS: ANION GAP 27.1 meq/L (7-15)
[2021-12-06] MEDS: Venlafaxine 75 MG Cap.ER PO SCH (08:14)
[2021-12-06] MEDS: Magnesium Chloride 64 MG Tab.ER PO SCH (08:14)
[2021-12-06] MEDS: Allopurinol 100 MG Tab PO SCH (08:14)
[2021-12-06] MEDS: Carvedilol 25 MG Tab PO SCH (08:14)
[2021-12-06] MEDS: prednisoLONE Acetate 1% Ophth Susp 5 ML Bottle EYERT SCH (08:16)
== END 2021-12-06 11:20 | disposition swing bed (61) | DRG 602 ==
LOC: LL.ED 06:11 → LL.MS 07:45
PROVIDERS: ADMIT Hospitalist; ATTEND Hospitalist
PROC: 8E0ZXY6 Isolation (ICD-10-PCS; principal; 2021-12-05)
DX: L03.116 Cellulitis of left lower limb (principal); U07.1 COVID-19; G93.41 Metabolic encephalopathy; N18.6 End stage renal disease; I13.2 Hypertensive heart and chronic kidney disease with heart failure and with stage 5 chronic kidney disease, or end stage renal disease; I50.32 Chronic diastolic (congestive) heart failure; Z99.2 Dependence on renal dialysis; R41.3 Other amnesia; D64.9 Anemia, unspecified; Z66 Do not resuscitate; Z51.5 Encounter for palliative care; U09.9 Post COVID-19 condition, unspecified; Z96.653 Presence of artificial knee joint, bilateral; Z96.611 Presence of right artificial shoulder joint; R29.6 Repeated falls; H54.7 Unspecified visual loss; K57.90 Diverticulosis of intestine, part unspecified, without perforation or abscess without bleeding; E78.00 Pure hypercholesterolemia, unspecified; N40.0 Benign prostatic hyperplasia without lower urinary tract symptoms; M54.9 Dorsalgia, unspecified; G89.29 Other chronic pain; M54.2 Cervicalgia; M19.90 Unspecified osteoarthritis, unspecified site; F41.8 Other specified anxiety disorders; E78.2 Mixed hyperlipidemia; G20 Parkinson's disease; F10.21 Alcohol dependence, in remission; E83.42 Hypomagnesemia; D63.1 Anemia in chronic kidney disease; Z79.899 Other long term (current) drug therapy; Z87.891 Personal history of nicotine dependence
CPT/HCPCS: 0241U; 36415; 80053; 80202; 83735; 85027; 87040; 96374; 83605; 83880; 84484; 85025; 93005; 99239; 99285-25; A9270-GY; J1644; J3370; J3490

== ENCOUNTER 2021-12-06 10:45 | Inpatient (IN) | payer MEDICARE, BC ==
[2021-12-06] MEDS ORDERED: Ondansetron 4 MG Tab.DIS PO PRN (11:16)
[2021-12-06] MEDS ORDERED: Lidocaine 1% 5 ML VIAL INJECT ONE (11:37)
[2021-12-06] MEDS ORDERED: Acetaminophen/HYDROcodone 325-10 MG Tab PO ONE (14:34)
[2021-12-06] MEDS ORDERED: LORazepam Conc Solution 2 MG/ML 30 ML Bottle PO PRN (15:16)
[2021-12-06] MEDS ORDERED: Morphine Oral Concentrate 20 MG/ML 30 ML Bottle SL PRN (15:16)
[2021-12-06] MEDS ORDERED: Lactulose Soln 10 GM/15 ML 30 ML UD Cup PO PRN (15:16)
[2021-12-06] MEDS ORDERED: Camphor/Menthol 0.5-0.5% Lotion 222 ML Bottle TOP PRN (16:00)
[2021-12-06] MEDS ORDERED: Hyoscyamine 0.125 MG Tab.SL SL PRN (17:21)
[2021-12-06] MEDS ORDERED: Lactulose Soln 10 GM/15 ML **OWN MED PO PRN (17:56)
[2021-12-06] MEDS ORDERED: LORAZEPAM 2 MG/ML PO PRN (17:58)
[2021-12-06] MEDS ORDERED: CAMPHOR TOP PRN (18:34)
[2021-12-06] MEDS ORDERED: MENTHOL TOP PRN (18:34)
[2021-12-06] MEDS: MORPHINE 20 MG/ML BUCCAL SCH (20:03)
[2021-12-07] MEDS: MORPHINE 20 MG/ML BUCCAL SCH ×4 (01:55→20:15)
[2021-12-07] MEDS: Lactulose Soln 10 GM/15 ML **OWN MED PO SCH (09:37)
[2021-12-07] MEDS: LORAZEPAM 2 MG/ML BUCCAL PRN (09:40)
[2021-12-07] MEDS ORDERED: hydrOXYzine HCl 25 MG Tab PO PRN (12:35)
[2021-12-07] MEDS ORDERED: Ondansetron 4 MG Tab.DIS PO SCH (13:00)
[2021-12-07] MEDS ORDERED: Saliva Substitute Oral Spray 120 ML Bottle MUCMEM PRN (13:02)
[2021-12-07] MEDS: Ondansetron 4 MG Tab.DIS PO SCH ×2 (14:18→19:23)
[2021-12-07] MEDS: MORPHINE 20 MG/ML BUCCAL PRN (23:49)
[2021-12-08] MEDS: Ondansetron 4 MG Tab.DIS PO SCH ×4 (02:03→20:01)
[2021-12-08] MEDS: MORPHINE 20 MG/ML BUCCAL SCH ×3 (02:51→14:33)
[2021-12-08] MEDS: MORPHINE 20 MG/ML BUCCAL PRN ×8 (04:07→14:20)
[2021-12-08] MEDS: LORAZEPAM 2 MG/ML BUCCAL PRN ×2 (04:19→11:30)
[2021-12-08] MEDS: Lactulose Soln 10 GM/15 ML **OWN MED PO SCH (09:16)
[2021-12-08] MEDS: Morphine Oral Concentrate 20 MG/ML 30 ML Bottle BUCCAL PRN ×2 (14:51→16:20)
[2021-12-08] MEDS: Morphine Oral Concentrate 20 MG/ML 30 ML Bottle BUCCAL SCH ×2 (17:21→22:18)
[2021-12-08] MEDS: LORazepam Conc Solution 2 MG/ML 30 ML Bottle BUCCAL SCH ×2 (17:21→22:18)
[2021-12-08] MEDS: HYOSCYAMINE 0.125 MG SL PRN (19:57)
[2021-12-09] MEDS: HYOSCYAMINE 0.125 MG SL PRN ×5 (00:01→15:28)
[2021-12-09] MEDS: Ondansetron 4 MG Tab.DIS PO SCH ×3 (03:19→13:04)
[2021-12-09] MEDS: Morphine Oral Concentrate 20 MG/ML 30 ML Bottle BUCCAL SCH ×5 (03:29→14:14)
[2021-12-09] MEDS: LORazepam Conc Solution 2 MG/ML 30 ML Bottle BUCCAL SCH ×5 (03:29→14:07)
[2021-12-09] MEDS: Morphine Oral Concentrate 20 MG/ML 30 ML Bottle BUCCAL PRN ×6 (05:47→15:29)
[2021-12-09] MEDS: Lactulose Soln 10 GM/15 ML **OWN MED PO SCH (09:27)
[2021-12-09] MEDS: Hyoscyamine 0.125 MG Tab.SL SL SCH ×2 (09:29→13:54)
[2021-12-09] MEDS ORDERED: Glycopyrrolate 0.2 MG/ML SDV PRN (09:54)
[2021-12-09] MEDS ORDERED: Haloperidol Lactate 2 MG/ML Oral Soln 15 ML Bottle PRN ×2 (09:58→10:04)
[2021-12-09] MEDS ORDERED: HYOSCYAMINE 0.125 MG SL SCH (17:30)
== END 2021-12-09 18:50 | disposition expired | DRG 951 ==
LOC: LL.MS 11:42
PROVIDERS: ADMIT Physician Assistant; ATTEND Physician Assistant
PROC: 0JPT3WZ Removal of Totally Implantable Vascular Access Device from Trunk Subcutaneous Tissue and Fascia, Percutaneous Approach (ICD-10-PCS; principal; 2021-12-06)
DX: Z51.5 Encounter for palliative care (principal); N18.6 End stage renal disease; G93.41 Metabolic encephalopathy; U07.1 COVID-19; L03.116 Cellulitis of left lower limb; K59.00 Constipation, unspecified; F41.9 Anxiety disorder, unspecified; R45.1 Restlessness and agitation; Z91.81 History of falling; Z79.899 Other long term (current) drug therapy
CPT/HCPCS: A9270-GY